=== PATIENT | male | born 1965 | race African-American/Black ===

== ENCOUNTER 2018-01-08 22:30 | Inpatient (IN) ==
[2018-01-08] MEDS ORDERED: LABETALOL 20 MG/4 ML SYRINGE IV STA (23:20)
[2018-01-08 23:41] LABS: Basophils # 0.1 10*3/uL (0.0-0.2); Basophils % 0.3 % (0.0-0.8); Eosinophils # 0.1 10*3/uL (0.0-0.87); Eosinophils % 0.4 % (0.00-10.9); Immature Granulocytes % 0.8 %; Immature Granulocytes Absolute 0.12 #; Lymphocytes # 3.7 10*3/uL (1.4-4.0); Lymphocytes % 24.7 % (21.2-54.2); Mean Corpuscular HGB Conc 34.9 GM/DL (32-36); Mean Corpuscular Hemoglobin 30 PG (27-34); Mean Corpuscular Volume 87.2 FL (87-102); Mean Platelet Volume 10.6 FL (9.6-12.0); Monocytes # 1.6 10*3/uL (0.11-0.8); Monocytes % 10.8 % (1.7-12.7); Neutrophils # 9.4 10*3/uL (1.4-7.4); Platelet Count 272 T/CUMM (130-400); Red Blood Count 4.93 MC/CUMM (3.8-5.5); Red Cell Distribution Width 12.5 % (9.3-17.3)
[2018-01-08 23:50] LABS: INR 1.1; Partial Thromboplastin Time 28.4 SECS (0-40)
[2018-01-09 00:03] LABS: Alanine Aminotransferase 24 U/L (16-61); Alkaline Phosphatase 85 U/L (45-117); Aspartate Amino Transferase 21 U/L (0-37); Blood Urea Nitrogen 8 MG/DL (7-18); Calcium 8.9 MG/DL (8.5-10.1); Glucose 109 MG/DL (74-106); Osmolality,Calculated 273.7 MOS/KG (273-304); Sodium 138 MMOL/L (136-145); Total Protein 7.4 G/DL (6.4-8.3)
[2018-01-09] MEDS ORDERED: LABETALOL 20 MG/4 ML SYRINGE IV ONE (00:05)
[2018-01-09 00:18] LABS: Troponin I Only 0.065 NG/ML (0.00-0.045)
[2018-01-09 00:34] LABS: Apearance,Urine CLEAR (Clear); Bilirubin,Urine Negative (Negative); Blood, Urine Small mg/dL (Negative); Glucose,Urine (UA) Negative (Negative); Ketones,Urine 5 mg/dL (Negative); Mucus,Urine Occasional /LPF (Occasional); Nitrite,Urine Negative (Negative); Protein,Urine Negative; RBC,Urine <1 /HPF (0-4); Urine Color Yellow (Yellow); Urine Specific Gravity 1.006 (1.001-1.035); Urine Urobilinogen < 2.0 EU/DL (0.2-1.0); WBC,Urine 2 /HPF (0-6)
[2018-01-09 00:38] LABS: Barbiturates Screen,Urine Negative (Negative); Benzodiazepines Screen,Urine Negative (Negative); Cannabinoid Screen,Urine Positive (Negative); Opiate Screen,Urine Negative (Negative); Phencyclidine Screen,Urine Negative (Negative)
[2018-01-09] MEDS ORDERED: ENOXAPARIN 100 MG/ML SYRINGE SUBCUT STA (01:24)
[2018-01-09] MEDS ORDERED: ENOXAPARIN 100 MG/ML SYRINGE SUBCUT ONE (01:41)
[2018-01-09] MEDS ORDERED: ACETAMINOPHEN 325 MG TABLET PO PRN (02:37)
[2018-01-09] MEDS ORDERED: ONDANSETRON 4 MG/2 ML VIAL IV PRN (02:37)
[2018-01-09] MEDS: hydrALAZINE 20 MG/1 ML VIAL IV PRN (04:00)
[2018-01-09 04:40] LABS: Basophils % 0.2 % (0.0-0.8); Eosinophils # 0.1 10*3/uL (0.0-0.87); Eosinophils % 0.5 % (0.00-10.9); Hematocrit 44.7 VOL% (42.0-52.0); Hemoglobin 15.3 GM/DL (14.0-18.0); Immature Granulocytes % 0.8 %; Lymphocytes # 3.4 10*3/uL (1.4-4.0); Mean Corpuscular HGB Conc 34.2 GM/DL (32-36); Mean Corpuscular Hemoglobin 30 PG (27-34); Mean Corpuscular Volume 87.3 FL (87-102); Mean Platelet Volume 10.5 FL (9.6-12.0); Monocytes # 1.5 10*3/uL (0.11-0.8); Monocytes % 11.4 % (1.7-12.7); Neutrophils # 7.9 10*3/uL (1.4-7.4); Neutrophils % 61.1 % (38.7-73.9); Platelet Count 261 T/CUMM (130-400); Red Blood Count 5.12 MC/CUMM (3.8-5.5); Red Cell Distribution Width 12.4 % (9.3-17.3); White Blood Count 12.9 T/CUMM (4-12)
[2018-01-09 05:17] LABS: Risk Ratio 2.75; Thyroid Stimulating Hormone 2.22 uIU/ml (0.358-3.74)
[2018-01-09] MEDS ORDERED: POTASSIUM CHLORIDE RIDER 10 MEQ in PREMIX 1 EACH IV PRN (05:36)
[2018-01-09] MEDS: POTASSIUM CHLORIDE RIDER 10 MEQ in PREMIX 1 EACH IV PRN ×3 (06:43→10:19)
[2018-01-09] MEDS ORDERED: PANTOPRAZOLE 40 MG TABLET PO SCH (09:00)
[2018-01-09] MEDS ORDERED: LORazepam 2 MG/1 ML VIAL IV ONE (09:30)
[2018-01-09] MEDS: LOSARTAN 25 MG TABLET PO SCH (12:05)
[2018-01-09] MEDS: amLODIPine 5 MG TABLET PO SCH (12:05)
[2018-01-09] MEDS: ASPIRIN EC 81 MG TABLET PO SCH (12:05)
[2018-01-09] MEDS ORDERED: GLYCOPYRROLATE 0.4 MG/2 ML VIAL IV ONE (12:10)
[2018-01-09 12:59] LABS: Allen Test Positive
[2018-01-09 13:00] LABS: ABG Base Excess 0.5 MMOL/L (-2.5-2.5); ABG HCO3 23.9 MMOL/L (20-26); ABG Oxygen Saturation 62.4 % (95-100); ABG PCO2 51.6 MM HG (35-48); ABG PH 7.337 (7.35-7.45); ABG TCO2 23.5 MMOL/L (23-27)
[2018-01-09] MEDS ORDERED: PROPOFOL 1,000 MG/100 ML BOTTLE IV ONE ×2 (13:05→18:06)
[2018-01-09 13:08] LABS: Basophils % 0.2 % (0.0-0.8); Eosinophils # 0.1 10*3/uL (0.0-0.87); Eosinophils % 0.4 % (0.00-10.9); Hematocrit 48.1 VOL% (42.0-52.0); Immature Granulocytes % 0.8 %; Lymphocytes # 2.7 10*3/uL (1.4-4.0); Lymphocytes % 22.2 % (21.2-54.2); Mean Corpuscular HGB Conc 33.3 GM/DL (32-36); Mean Corpuscular Hemoglobin 30 PG (27-34); Mean Corpuscular Volume 90.4 FL (87-102); Mean Platelet Volume 10.5 FL (9.6-12.0); Monocytes # 1.3 10*3/uL (0.11-0.8); Monocytes % 10.4 % (1.7-12.7); Neutrophils # 8.1 10*3/uL (1.4-7.4); Platelet Count 264 T/CUMM (130-400); Red Blood Count 5.32 MC/CUMM (3.8-5.5); Red Cell Distribution Width 12.6 % (9.3-17.3); White Blood Count 12.3 T/CUMM (4-12)
[2018-01-09] MEDS ORDERED: FUROSEMIDE 40 MG/4 ML VIAL ONE (13:09)
[2018-01-09] MEDS ORDERED: ETOMIDATE 20 MG/10 ML VIAL IV ONE (13:12)
[2018-01-09] MEDS ORDERED: ROCURONIUM 100 MG/10 ML VIAL IV ONE (13:12)
[2018-01-09] MEDS ORDERED: VECURONIUM 10 MG VIAL IV ONE (13:12)
[2018-01-09 13:16] LABS: ABG PO2 36.3 MM HG (80-95)
[2018-01-09] MEDS ORDERED: hydrALAZINE 20 MG/1 ML VIAL IV ONE (13:20)
[2018-01-09] MEDS ORDERED: FUROSEMIDE 40 MG/4 ML VIAL IV ONE ×2 (13:20→17:07)
[2018-01-09] MEDS: PROPOFOL 1,000 MG/100 ML BOTTLE IV SCH ×2 (13:20→19:15)
[2018-01-09] MEDS ORDERED: PROPOFOL 200 MG/20 ML VIAL IV PRN (13:30)
[2018-01-09 13:31] LABS: Apearance,Urine CLOUDY (Clear); Bacteria,Urine Few /HPF (Few); Bilirubin,Urine Negative (Negative); Blood, Urine Small mg/dL (Negative); Glucose,Urine (UA) 150 mg/dL (Negative); Granular Casts,Urine 8 /LPF (0-1); Ketones,Urine 20 mg/dL (Negative); Nitrite,Urine Negative (Negative); Protein,Urine >=500 MG/DL; RBC,Urine 8 /HPF (0-4); Squamous Epithelial Cell,Urine Occasional /HPF (0-10); Urine Color Yellow (Yellow); Urine Specific Gravity 1.025 (1.001-1.035); Urine Urobilinogen < 2.0 EU/DL (0.2-1.0); WBC,Urine 66 /HPF (0-6)
[2018-01-09 13:32] LABS: Alanine Aminotransferase 26 U/L (16-61); Albumin 3.1 G/DL (3.4-5.0); Alkaline Phosphatase 91 U/L (45-117); Aspartate Amino Transferase 18 U/L (0-37); Blood Urea Nitrogen 8 MG/DL (7-18); Calcium 8.7 MG/DL (8.5-10.1); Glucose 103 MG/DL (74-106); Osmolality,Calculated 278.3 MOS/KG (273-304); Potassium 3.3 MMOL/L (3.5-5.1); Sodium 141 MMOL/L (136-145)
[2018-01-09 13:33] LABS: Troponin I Only 0.063 NG/ML (0.00-0.045)
[2018-01-09 13:36] LABS: Eosinophils 2 % (0-10); Lymphocytes 24 % (20-55); Platelet Estimate Adequate; Total Cells Counted 100
[2018-01-09 13:37] LABS: Segmented Neutrophils 70 % (50-85)
[2018-01-09 14:18] LABS: ABG Base Excess -1.5 MMOL/L (-2.5-2.5); ABG HCO3 23.2 MMOL/L (20-26); ABG Oxygen Saturation 98.1 % (95-100); ABG TCO2 26.6 MMOL/L (23-27)
[2018-01-09 14:21] LABS: ABG PCO2 78.8 MM HG (35-48); ABG PH 7.199 (7.35-7.45)
[2018-01-09 14:24] LABS: Basophils # 0.1 10*3/uL (0.0-0.2); Basophils % 0.2 % (0.0-0.8); Eosinophils % 0.2 % (0.00-10.9); Hematocrit 50.8 VOL% (42.0-52.0); Hemoglobin 16.7 GM/DL (14.0-18.0); Immature Granulocytes % 0.9 %; Lymphocytes # 2.3 10*3/uL (1.4-4.0); Lymphocytes % 10.8 % (21.2-54.2); Mean Corpuscular HGB Conc 32.9 GM/DL (32-36); Mean Corpuscular Hemoglobin 30 PG (27-34); Mean Corpuscular Volume 91.2 FL (87-102); Mean Platelet Volume 10.2 FL (9.6-12.0); Monocytes # 1.4 10*3/uL (0.11-0.8); Monocytes % 6.7 % (1.7-12.7); Neutrophils # 17.5 10*3/uL (1.4-7.4); Neutrophils % 81.2 % (38.7-73.9); Platelet Count 267 T/CUMM (130-400); Red Blood Count 5.57 MC/CUMM (3.8-5.5); Red Cell Distribution Width 12.7 % (9.3-17.3); White Blood Count 21.6 T/CUMM (4-12)
[2018-01-09 14:48] LABS: Lymphocytes 9 % (20-55); Platelet Estimate Adequate; Segmented Neutrophils 83 % (50-85)
[2018-01-09 14:49] LABS: Total Cells Counted 100
[2018-01-09 14:57] LABS: Alanine Aminotransferase 32 U/L (16-61); Albumin 3.2 G/DL (3.4-5.0); Alkaline Phosphatase 103 U/L (45-117); Aspartate Amino Transferase 29 U/L (0-37); Blood Urea Nitrogen 9 MG/DL (7-18); Glucose 154 MG/DL (74-106); Osmolality,Calculated 280.4 MOS/KG (273-304); Potassium 3.6 MMOL/L (3.5-5.1); Sodium 140 MMOL/L (136-145); Total Protein 8.7 G/DL (6.4-8.3)
[2018-01-09 14:59] LABS: Troponin I Only 0.141 NG/ML (0.00-0.045)
[2018-01-09] MEDS ORDERED: FUROSEMIDE 40 MG/4 ML VIAL IV SCH (16:00)
[2018-01-09 16:04] LABS: ABG Base Excess 1.2 MMOL/L (-2.5-2.5); ABG HCO3 27.2 MMOL/L (20-26); ABG Oxygen Saturation 87.2 % (95-100); ABG PCO2 47.7 MM HG (35-48); ABG PH 7.374 (7.35-7.45); ABG TCO2 28.7 MMOL/L (23-27)
[2018-01-09] MEDS ORDERED: METOPROLOL TARTRATE 5 MG/5 ML VIAL IV ONE (16:55)
[2018-01-09 17:01] LABS: Free T4 (Free Thyroxine) 1.48 NG/DL (0.76-1.46)
[2018-01-09] MEDS: SCOPOLAMINE 1.5 MG PATCH TRANSDERM SCH (17:26)
[2018-01-09] MEDS: methylPREDNISolone SOD SUC 40 MG/1 ML VIAL IV SCH (17:27)
[2018-01-09] MEDS: METOPROLOL TARTRATE 5 MG/5 ML VIAL IV SCH ×2 (17:27→21:53)
[2018-01-09] MEDS: PIPERACILLIN/TAZOBACTAM 3,375 MG in SODIUM CHLORIDE 0.9% 100 ML IV SCH (17:27)
[2018-01-09] MEDS: ENOXAPARIN 40 MG/0.4 ML SYRINGE SUBCUT SCH (17:38)
[2018-01-09 17:44] LABS: Lactic Acid 3.4 MMOL/L (0.4-2.0)
[2018-01-09] MEDS: INSULIN REGULAR 100 UNIT/ML SUBCUT SCH (19:14)
[2018-01-09] MEDS: LABETALOL INJ 200 MG in SODIUM CHLORIDE 0.9% 160 ML IV SCH (19:14)
[2018-01-09] MEDS: ALBUTEROL/IPRATROPIUM 3 ML NEB RESP TX SCH (19:33)
[2018-01-09] MEDS: ATORVASTATIN 80 MG TABLET PO SCH (20:07)
[2018-01-10] MEDS: INSULIN REGULAR 100 UNIT/ML SUBCUT SCH ×4 (00:06→18:20)
[2018-01-10] MEDS: methylPREDNISolone SOD SUC 40 MG/1 ML VIAL IV SCH ×5 (00:07→22:31)
[2018-01-10] MEDS: PIPERACILLIN/TAZOBACTAM 3,375 MG in SODIUM CHLORIDE 0.9% 100 ML IV SCH ×3 (00:07→16:15)
[2018-01-10] MEDS: ALBUTEROL/IPRATROPIUM 3 ML NEB RESP TX SCH ×4 (00:14→19:38)
[2018-01-10] MEDS: PROPOFOL 1,000 MG/100 ML BOTTLE IV SCH ×3 (01:18→18:20)
[2018-01-10 03:44] LABS: ABG Base Excess -1.5 MMOL/L (-2.5-2.5); ABG HCO3 23.2 MMOL/L (20-26); ABG Oxygen Saturation 99.2 % (95-100); ABG PCO2 39.7 MM HG (35-48); ABG PH 7.379 (7.35-7.45); ABG TCO2 19.6 MMOL/L (23-27); Allen Test Positive; Pt O2 Delivery Device Ventilator
[2018-01-10 04:45] LABS: Basophils # 0.2 10*3/uL (0.0-0.2); Basophils % 0.3 % (0.0-0.8); Hematocrit 47.1 VOL% (42.0-52.0); Hemoglobin 15.5 GM/DL (14.0-18.0); Immature Granulocytes % 2.8 %; Immature Granulocytes Absolute 1.49 #; Lymphocytes # 2.8 10*3/uL (1.4-4.0); Lymphocytes % 5.3 % (21.2-54.2); Mean Corpuscular HGB Conc 32.9 GM/DL (32-36); Mean Corpuscular Hemoglobin 30 PG (27-34); Mean Corpuscular Volume 90.2 FL (87-102); Mean Platelet Volume 10.3 FL (9.6-12.0); Monocytes # 1.1 10*3/uL (0.11-0.8); Neutrophils # 47.9 10*3/uL (1.4-7.4); Neutrophils % 89.6 % (38.7-73.9); Platelet Count 268 T/CUMM (130-400); Red Blood Count 5.22 MC/CUMM (3.8-5.5); Red Cell Distribution Width 12.7 % (9.3-17.3)
[2018-01-10 04:47] LABS: White Blood Count 53.5 T/CUMM (4-12)
[2018-01-10 05:10] LABS: Band Neutrophils 2 % (0-10); Lymphocytes 7 % (20-55); Platelet Estimate Normal; Segmented Neutrophils 88 % (50-85); Total Cells Counted 100
[2018-01-10 05:13] LABS: Calcium 8.8 MG/DL (8.5-10.1); Osmolality,Calculated 286.5 MOS/KG (273-304); Potassium 3.4 MMOL/L (3.5-5.1)
[2018-01-10 05:16] LABS: Albumin 2.9 G/DL (3.4-5.0); Bilirubin,Total 1.1 MG/DL (0.2-1.0); Calcium 8.9 MG/DL (8.5-10.1); Osmolality,Calculated 286.5 MOS/KG (273-304); Potassium 3.5 MMOL/L (3.5-5.1); Total Protein 7.7 G/DL (6.4-8.3)
[2018-01-10] MEDS: METOPROLOL TARTRATE 5 MG/5 ML VIAL IV SCH ×5 (05:34→21:32)
[2018-01-10] MEDS ORDERED: ALBUMIN 25% 50 GM in PREMIX 1 EACH IV ONE ×2 (05:37→10:00)
[2018-01-10] MEDS ORDERED: LEVOFLOXACIN INJ 750 MG in PREMIX 1 EACH IV SCH (06:00)
[2018-01-10] MEDS: POTASSIUM CHLORIDE RIDER 10 MEQ in PREMIX 1 EACH IV PRN ×3 (06:38→08:27)
[2018-01-10 06:45] LABS: Lactic Acid 2.8 MMOL/L (0.4-2.0)
[2018-01-10] MEDS ORDERED: FUROSEMIDE 40 MG/4 ML VIAL IV SCH ×2 (08:00→09:00)
[2018-01-10] MEDS ORDERED: SODIUM CHLORIDE 0.9% 500 ML IV ONE (08:11)
[2018-01-10] MEDS: ASPIRIN EC 81 MG TABLET PO SCH (08:17)
[2018-01-10] MEDS: amLODIPine 5 MG TABLET PO SCH (08:17)
[2018-01-10] MEDS: LOSARTAN 25 MG TABLET PO SCH (08:17)
[2018-01-10] MEDS: SODIUM CHLORIDE 0.9% 1,000 ML IV SCH ×2 (08:18→21:32)
[2018-01-10] MEDS: PANTOPRAZOLE 40 MG VIAL IV SCH (08:19)
[2018-01-10] MEDS: ENOXAPARIN 40 MG/0.4 ML SYRINGE SUBCUT SCH (08:19)
[2018-01-10] MEDS: VANCOMYCIN INJ 1,500 MG in SODIUM CHLORIDE 0.9% 500 ML IV SCH (09:52)
[2018-01-10 10:41] LABS: Basophils # 0.1 10*3/uL (0.0-0.2); Basophils % 0.1 % (0.0-0.8); Hematocrit 44.9 VOL% (42.0-52.0); Immature Granulocytes % 1.6 %; Immature Granulocytes Absolute 0.74 #; Lymphocytes # 2.2 10*3/uL (1.4-4.0); Mean Corpuscular HGB Conc 33.4 GM/DL (32-36); Mean Corpuscular Hemoglobin 30 PG (27-34); Mean Platelet Volume 10.9 FL (9.6-12.0); Monocytes % 2.3 % (1.7-12.7); Platelet Count 288 T/CUMM (130-400); Red Blood Count 4.99 MC/CUMM (3.8-5.5)
[2018-01-10 10:56] LABS: Calcium 8.5 MG/DL (8.5-10.1); Osmolality,Calculated 287.4 MOS/KG (273-304); Potassium 3.9 MMOL/L (3.5-5.1)
[2018-01-10 11:08] LABS: Band Neutrophils 23 % (0-10); Lymphocytes 3 % (20-55); Segmented Neutrophils 73 % (50-85); Total Cells Counted 100
[2018-01-10 11:09] LABS: Macrocytosis Slight; Platelet Estimate Normal
[2018-01-10] MEDS: LABETALOL INJ 200 MG in SODIUM CHLORIDE 0.9% 160 ML IV SCH (16:13)
[2018-01-10 16:49] LABS: ABG Base Excess 1.9 MMOL/L (-2.5-2.5); ABG HCO3 26.1 MMOL/L (20-26); ABG Oxygen Saturation 95.8 % (95-100); ABG PCO2 39.4 MM HG (35-48); ABG PH 7.431 (7.35-7.45); ABG PO2 81.9 MM HG (80-95); ABG TCO2 22.5 MMOL/L (23-27); Allen Test Positive; Pt O2 Delivery Device Ventilator
[2018-01-10] MEDS: ATORVASTATIN 80 MG TABLET PO SCH (21:31)
[2018-01-11] MEDS: PROPOFOL 1,000 MG/100 ML BOTTLE IV SCH ×3 (00:51→18:32)
[2018-01-11] MEDS: PIPERACILLIN/TAZOBACTAM 3,375 MG in SODIUM CHLORIDE 0.9% 100 ML IV SCH ×3 (01:09→17:23)
[2018-01-11] MEDS: INSULIN REGULAR 100 UNIT/ML SUBCUT SCH ×4 (01:09→18:23)
[2018-01-11] MEDS: METOPROLOL TARTRATE 5 MG/5 ML VIAL IV SCH ×5 (01:10→17:29)
[2018-01-11] MEDS: hydrALAZINE 20 MG/1 ML VIAL IV PRN (01:10)
[2018-01-11] MEDS: ALBUTEROL/IPRATROPIUM 3 ML NEB RESP TX SCH ×4 (01:45→20:16)
[2018-01-11 05:10] LABS: ABG Base Excess 3.8 MMOL/L (-2.5-2.5); ABG HCO3 27.6 MMOL/L (20-26); ABG Oxygen Saturation 90.5 % (95-100); ABG PCO2 36.6 MM HG (35-48); ABG PH 7.478 (7.35-7.45); ABG TCO2 23.3 MMOL/L (23-27); Allen Test Positive; Pt O2 Delivery Device Ventilator
[2018-01-11 06:09] LABS: Basophils % 0.1 % (0.0-0.8); Hematocrit 40.7 VOL% (42.0-52.0); Hemoglobin 13.9 GM/DL (14.0-18.0); Immature Granulocytes % 1.6 %; Immature Granulocytes Absolute 0.49 #; Lymphocytes # 1.2 10*3/uL (1.4-4.0); Lymphocytes % 3.9 % (21.2-54.2); Mean Corpuscular HGB Conc 34.2 GM/DL (32-36); Mean Corpuscular Hemoglobin 30 PG (27-34); Mean Corpuscular Volume 87.9 FL (87-102); Mean Platelet Volume 10.9 FL (9.6-12.0); Monocytes # 1.1 10*3/uL (0.11-0.8); Monocytes % 3.7 % (1.7-12.7); Neutrophils # 27.3 10*3/uL (1.4-7.4); Neutrophils % 90.7 % (38.7-73.9); Platelet Count 263 T/CUMM (130-400); Red Blood Count 4.63 MC/CUMM (3.8-5.5); Red Cell Distribution Width 13.2 % (9.3-17.3); White Blood Count 30.1 T/CUMM (4-12)
[2018-01-11 06:27] LABS: Calcium 8.8 MG/DL (8.5-10.1); Osmolality,Calculated 292.8 MOS/KG (273-304); Potassium 3.5 MMOL/L (3.5-5.1)
[2018-01-11 06:31] LABS: Hypochromasia 1+; Lymphocytes 1 % (20-55); Ovalocytes Slight; Platelet Estimate Adequate; Segmented Neutrophils 98 % (50-85); Total Cells Counted 100
[2018-01-11] MEDS: methylPREDNISolone SOD SUC 40 MG/1 ML VIAL IV SCH ×3 (06:47→17:26)
[2018-01-11] MEDS: PANTOPRAZOLE 40 MG VIAL IV SCH (08:21)
[2018-01-11] MEDS: ASPIRIN EC 81 MG TABLET PO SCH (08:21)
[2018-01-11] MEDS: VANCOMYCIN INJ 1,500 MG in SODIUM CHLORIDE 0.9% 500 ML IV SCH (08:22)
[2018-01-11] MEDS: LOSARTAN 25 MG TABLET PO SCH (08:26)
[2018-01-11] MEDS: ENOXAPARIN 40 MG/0.4 ML SYRINGE SUBCUT SCH (10:35)
[2018-01-11] MEDS: POTASSIUM CHLORIDE RIDER 10 MEQ in PREMIX 1 EACH IV PRN ×3 (10:36→13:15)
[2018-01-11] MEDS ORDERED: DEXTROSE 50% 25 GM/50 ML VIAL IV PRN (11:03)
[2018-01-11] MEDS ORDERED: GLUCAGON 1 MG VIAL IM PRN (11:03)
[2018-01-11] MEDS: amLODIPine 5 MG TABLET PO SCH (11:05)
[2018-01-11] MEDS: LABETALOL INJ 200 MG in SODIUM CHLORIDE 0.9% 160 ML IV SCH (17:03)
[2018-01-11 18:08] LABS: Glucose,CSF 86 MG/DL (40-70)
[2018-01-11 18:15] LABS: Appearance,CSF Clear; Lymphocytes,CSF 100 %; Red Blood Cell,CSF 41 C/CUMM; White Blood Cell,CSF < 1 C/CUMM
[2018-01-11] MEDS: SODIUM CHLORIDE 0.9% 1,000 ML IV SCH (18:30)
[2018-01-11] MEDS: ATORVASTATIN 80 MG TABLET PO SCH (20:41)
[2018-01-11] MEDS: cefTRIAXone 1,000 MG in SYRINGE 1 EACH IV SCH (20:42)
[2018-01-12] MEDS: methylPREDNISolone SOD SUC 40 MG/1 ML VIAL IV SCH ×3 (00:18→18:10)
[2018-01-12] MEDS: METOPROLOL TARTRATE 5 MG/5 ML VIAL IV SCH ×4 (00:18→09:30)
[2018-01-12] MEDS: INSULIN REGULAR 100 UNIT/ML SUBCUT SCH ×4 (00:19→18:03)
[2018-01-12] MEDS: ALBUTEROL/IPRATROPIUM 3 ML NEB RESP TX SCH ×4 (00:23→19:13)
[2018-01-12] MEDS: hydrALAZINE 20 MG/1 ML VIAL IV PRN ×2 (03:15→13:30)
[2018-01-12 04:39] LABS: Allen Test Positive; Pt O2 Delivery Device Ventilator
[2018-01-12 04:40] LABS: ABG Base Excess 2.9 MMOL/L (-2.5-2.5); ABG HCO3 26.5 MMOL/L (20-26); ABG Oxygen Saturation 98.4 % (95-100); ABG PCO2 37.2 MM HG (35-48); ABG PO2 127.9 MM HG (80-95); ABG TCO2 27.6 MMOL/L (23-27)
[2018-01-12 05:19] LABS: Basophils % 0.1 % (0.0-0.8); Hematocrit 40.8 VOL% (42.0-52.0); Hemoglobin 13.3 GM/DL (14.0-18.0); Immature Granulocytes % 0.9 %; Immature Granulocytes Absolute 0.23 #; Lymphocytes # 1.1 10*3/uL (1.4-4.0); Lymphocytes % 4.3 % (21.2-54.2); Mean Corpuscular HGB Conc 32.6 GM/DL (32-36); Mean Corpuscular Hemoglobin 30 PG (27-34); Mean Corpuscular Volume 91.9 FL (87-102); Mean Platelet Volume 11.1 FL (9.6-12.0); Monocytes # 0.9 10*3/uL (0.11-0.8); Monocytes % 3.7 % (1.7-12.7); Neutrophils # 22.6 10*3/uL (1.4-7.4); Platelet Count 265 T/CUMM (130-400); Red Blood Count 4.44 MC/CUMM (3.8-5.5); Red Cell Distribution Width 13.3 % (9.3-17.3); White Blood Count 24.8 T/CUMM (4-12)
[2018-01-12 05:38] LABS: Hypochromasia 1+; Lymphocytes 3 % (20-55); Platelet Estimate Adequate; Segmented Neutrophils 95 % (50-85); Total Cells Counted 100
[2018-01-12] MEDS ORDERED: LEVOFLOXACIN INJ 750 MG in PREMIX 1 EACH IV SCH (06:00)
[2018-01-12 06:04] LABS: Calcium 8.9 MG/DL (8.5-10.1); Osmolality,Calculated 303.3 MOS/KG (273-304)
[2018-01-12] MEDS: SODIUM CHLORIDE 0.9% 1,000 ML IV SCH (06:26)
[2018-01-12 06:35] LABS: Prealbumin 14.1 MG/DL (20-40)
[2018-01-12 07:29] LABS: HIV Antigen/Antibody Result Nonreactive (Nonreactive)
[2018-01-12] MEDS: PANTOPRAZOLE 40 MG VIAL IV SCH (09:00)
[2018-01-12] MEDS: ASPIRIN EC 81 MG TABLET PO SCH (09:00)
[2018-01-12] MEDS: SCOPOLAMINE 1.5 MG PATCH TRANSDERM SCH (09:00)
[2018-01-12] MEDS ORDERED: LABETALOL INJ 200 MG in SODIUM CHLORIDE 0.9% 160 ML IV PRN (09:00)
[2018-01-12] MEDS: LOSARTAN 25 MG TABLET PO SCH (09:00)
[2018-01-12] MEDS: amLODIPine 5 MG TABLET PO SCH (09:00)
[2018-01-12] MEDS: ENOXAPARIN 40 MG/0.4 ML SYRINGE SUBCUT SCH (09:00)
[2018-01-12] MEDS ORDERED: METOPROLOL TARTRATE 5 MG/5 ML VIAL IV PRN (10:00)
[2018-01-12] MEDS ORDERED: MIDAZOLAM 2 MG/2 ML VIAL ONE (12:00)
[2018-01-12] MEDS ORDERED: MIDAZOLAM 2 MG/2 ML VIAL IV ONE (13:00)
[2018-01-12] MEDS ORDERED: METOPROLOL TARTRATE 5 MG/5 ML VIAL IV ONE ×2 (13:35→13:37)
[2018-01-12] MEDS ORDERED: DILTIAZEM 50 MG/10 ML VIAL IV ONE ×3 (13:35→13:54)
[2018-01-12] MEDS ORDERED: SODIUM CHLORIDE 0.9% 500 ML IV ONE (13:54)
[2018-01-12 15:22] LABS: ABG Base Excess 0.2 MMOL/L (-2.5-2.5); ABG HCO3 24.6 MMOL/L (20-26); ABG Oxygen Saturation 96.1 % (95-100); ABG PCO2 40.2 MM HG (35-48); ABG PH 7.401 (7.35-7.45); ABG PO2 86.5 MM HG (80-95); ABG TCO2 21.7 MMOL/L (23-27); Pt O2 Delivery Device Ventilator
[2018-01-12] MEDS ORDERED: LACTATED RINGERS 1,000 ML IV SCH (16:00)
[2018-01-12] MEDS: DILTIAZEM 60 MG TABLET PO SCH ×2 (17:05→21:31)
[2018-01-12] MEDS: PROPOFOL 1,000 MG/100 ML BOTTLE IV SCH (20:54)
[2018-01-12] MEDS: cefTRIAXone 1,000 MG in SYRINGE 1 EACH IV SCH (21:25)
[2018-01-12] MEDS: ATORVASTATIN 80 MG TABLET PO SCH (21:31)
[2018-01-12 21:37] LABS: Potassium 4.1 MMOL/L (3.5-5.1)
[2018-01-13] MEDS: INSULIN REGULAR 100 UNIT/ML SUBCUT SCH ×4 (01:13→17:42)
[2018-01-13] MEDS: ALBUTEROL/IPRATROPIUM 3 ML NEB RESP TX SCH ×4 (01:20→18:50)
[2018-01-13 04:13] LABS: Allen Test Positive; Pt O2 Delivery Device Ventilator
[2018-01-13 04:16] LABS: ABG Base Excess 2.6 MMOL/L (-2.5-2.5); ABG HCO3 26.6 MMOL/L (20-26); ABG Oxygen Saturation 96.4 % (95-100); ABG PH 7.451 (7.35-7.45); ABG PO2 86.6 MM HG (80-95); ABG TCO2 22.7 MMOL/L (23-27)
[2018-01-13 04:58] LABS: Basophils % 0.1 % (0.0-0.8); Hematocrit 43.6 VOL% (42.0-52.0); Hemoglobin 13.9 GM/DL (14.0-18.0); Immature Granulocytes % 0.7 %; Immature Granulocytes Absolute 0.12 #; Lymphocytes # 1.2 10*3/uL (1.4-4.0); Lymphocytes % 6.8 % (21.2-54.2); Mean Corpuscular HGB Conc 31.9 GM/DL (32-36); Mean Corpuscular Hemoglobin 30 PG (27-34); Mean Corpuscular Volume 93.8 FL (87-102); Mean Platelet Volume 11.1 FL (9.6-12.0); Monocytes % 5.9 % (1.7-12.7); Neutrophils # 14.7 10*3/uL (1.4-7.4); Neutrophils % 86.5 % (38.7-73.9); Platelet Count 231 T/CUMM (130-400); Red Blood Count 4.65 MC/CUMM (3.8-5.5); Red Cell Distribution Width 13.6 % (9.3-17.3)
[2018-01-13 05:34] LABS: Potassium 4.9 MMOL/L (3.5-5.1)
[2018-01-13] MEDS: LEVOFLOXACIN INJ 750 MG in PREMIX 1 EACH IV SCH (06:00)
[2018-01-13] MEDS: methylPREDNISolone SOD SUC 40 MG/1 ML VIAL IV SCH ×2 (06:46→18:05)
[2018-01-13] MEDS: hydrALAZINE 20 MG/1 ML VIAL IV PRN ×2 (08:18→20:50)
[2018-01-13] MEDS: PANTOPRAZOLE 40 MG VIAL IV SCH (09:05)
[2018-01-13] MEDS: LOSARTAN 25 MG TABLET PO SCH (09:05)
[2018-01-13] MEDS: DILTIAZEM 60 MG TABLET PO SCH (09:05)
[2018-01-13] MEDS: ASPIRIN EC 81 MG TABLET PO SCH (09:05)
[2018-01-13] MEDS: ENOXAPARIN 40 MG/0.4 ML SYRINGE SUBCUT SCH (09:10)
[2018-01-13] MEDS: DILTIAZEM INJ 100 MG in SODIUM CHLORIDE 0.9% 100 ML IV SCH ×3 (09:40→22:31)
[2018-01-13] MEDS: DEXTROSE 5% NACL 0.45% 1,000 ML IV SCH (10:30)
[2018-01-13] MEDS ORDERED: hydrALAZINE 20 MG/1 ML VIAL IV ONE (11:00)
[2018-01-13] MEDS ORDERED: METOPROLOL TARTRATE 5 MG/5 ML VIAL IV ONE (11:47)
[2018-01-13] MEDS: IMMUNE GLOBULIN 10% 40 GM in PREMIX 1 EACH IV SCH (12:40)
[2018-01-13] MEDS ORDERED: METOPROLOL TARTRATE 5 MG/5 ML VIAL IV PRN (15:05)
[2018-01-13] MEDS: PROPOFOL 1,000 MG/100 ML BOTTLE IV SCH (19:00)
[2018-01-13] MEDS: cefTRIAXone 1,000 MG in SYRINGE 1 EACH IV SCH (20:40)
[2018-01-13] MEDS ORDERED: CLORAZEPATE 7.5 MG TABLET PO PRN (22:10)
[2018-01-14] MEDS: ALBUTEROL/IPRATROPIUM 3 ML NEB RESP TX SCH ×4 (00:10→19:33)
[2018-01-14] MEDS: INSULIN REGULAR 100 UNIT/ML SUBCUT SCH ×4 (01:07→18:51)
[2018-01-14 03:42] LABS: Allen Test Positive; Pt O2 Delivery Device Ventilator
[2018-01-14 03:43] LABS: ABG Base Excess 4.8 MMOL/L (-2.5-2.5); ABG HCO3 28.8 MMOL/L (20-26); ABG Oxygen Saturation 98.3 % (95-100); ABG PCO2 52.2 MM HG (35-48); ABG PH 7.387 (7.35-7.45); ABG TCO2 26.9 MMOL/L (23-27)
[2018-01-14] MEDS: CLORAZEPATE 7.5 MG TABLET PO PRN ×3 (04:50→22:30)
[2018-01-14 05:01] LABS: Basophils % 0.1 % (0.0-0.8); Hematocrit 44.9 VOL% (42.0-52.0); Hemoglobin 14.7 GM/DL (14.0-18.0); Immature Granulocytes % 0.8 %; Immature Granulocytes Absolute 0.11 #; Lymphocytes # 1.1 10*3/uL (1.4-4.0); Lymphocytes % 7.3 % (21.2-54.2); Mean Corpuscular HGB Conc 32.7 GM/DL (32-36); Mean Corpuscular Hemoglobin 30 PG (27-34); Mean Corpuscular Volume 92.4 FL (87-102); Mean Platelet Volume 10.8 FL (9.6-12.0); Monocytes % 6.6 % (1.7-12.7); Neutrophils # 12.5 10*3/uL (1.4-7.4); Neutrophils % 85.2 % (38.7-73.9); Platelet Count 273 T/CUMM (130-400); Red Blood Count 4.86 MC/CUMM (3.8-5.5); Red Cell Distribution Width 13.7 % (9.3-17.3); White Blood Count 14.6 T/CUMM (4-12)
[2018-01-14 05:28] LABS: Calcium 9.2 MG/DL (8.5-10.1); Osmolality,Calculated 299.6 MOS/KG (273-304); Potassium 4.8 MMOL/L (3.5-5.1)
[2018-01-14] MEDS: DILTIAZEM INJ 100 MG in SODIUM CHLORIDE 0.9% 100 ML IV SCH ×3 (05:31→19:01)
[2018-01-14] MEDS: LEVOFLOXACIN INJ 750 MG in PREMIX 1 EACH IV SCH (06:10)
[2018-01-14] MEDS: methylPREDNISolone SOD SUC 40 MG/1 ML VIAL IV SCH ×2 (07:00→17:39)
[2018-01-14] MEDS: DEXTROSE 5% NACL 0.45% 1,000 ML IV SCH (07:02)
[2018-01-14 10:25] LABS: CKMB % 2.1 %; Troponin I Only 0.167 NG/ML (0.00-0.045)
[2018-01-14] MEDS: METOPROLOL TARTRATE 5 MG/5 ML VIAL IV SCH ×2 (11:09→17:39)
[2018-01-14] MEDS: hydrALAZINE 20 MG/1 ML VIAL IV PRN ×3 (11:10→21:14)
[2018-01-14] MEDS: LOSARTAN 25 MG TABLET PO SCH (11:11)
[2018-01-14] MEDS: ASPIRIN EC 81 MG TABLET PO SCH (11:11)
[2018-01-14] MEDS: PANTOPRAZOLE 40 MG VIAL IV SCH (11:11)
[2018-01-14] MEDS: ENOXAPARIN 40 MG/0.4 ML SYRINGE SUBCUT SCH (11:11)
[2018-01-14] MEDS: IMMUNE GLOBULIN 10% 40 GM in PREMIX 1 EACH IV SCH (14:00)
[2018-01-14] MEDS ORDERED: [UNRECOGNIZED DRUG - OTHER] IV ONE (15:00)
[2018-01-14] MEDS ORDERED: NS IV ONE (15:00)
[2018-01-14] MEDS: PROPOFOL 1,000 MG/100 ML BOTTLE IV SCH (18:51)
[2018-01-14] MEDS ORDERED: LOSARTAN 25 MG TABLET PO ONE (18:59)
[2018-01-14] MEDS ORDERED: LOSARTAN 25 MG TABLET PO SCH (19:01)
[2018-01-14] MEDS: cefTRIAXone 1,000 MG in SYRINGE 1 EACH IV SCH (21:15)
[2018-01-14] MEDS ORDERED: MORPHINE 4 MG/1 ML VIAL IV PRN (23:16)
[2018-01-15 01:05] VITALS: BP 149/101
[2018-01-15] MEDS: METOPROLOL TARTRATE 5 MG/5 ML VIAL IV SCH (01:06)
[2018-01-15] MEDS: INSULIN REGULAR 100 UNIT/ML SUBCUT SCH (01:06)
[2018-01-15 18:21] LABS: West Nile Virus Ab, IgG, CSF Negative (Negative); West Nile Virus Ab, IgM, CSF Negative (Negative)
[2018-01-15 18:46] LABS: Enterovirus PCR Source CSF
[2018-01-17 15:21] LABS: Ehrlichia Chaffeensis (HME)IgG <1:64 titer (<1:64)
[2018-01-18 09:11] LABS: ACh Receptor (Muscle) Binding 0 nmol/L (<=0.02)
== END 2018-01-15 00:50 | disposition hospice, home (50) | DRG 94 ==
LOC: N.EDINP 22:30 → N.ED 22:30 → SUATTDRO 01-09 02:37 → N.TELEN 01-09 03:31 → SUATTDRO 01-09 12:08 → N.ICU 01-09 13:02
PROVIDERS: ADMIT Internal Medicine; ATTEND Internal Medicine

== ENCOUNTER 2018-04-26 14:06 | Inpatient (IN) ==
[2018-04-27 00:32] LABS: Basophils % 0.1 % (0.0-0.8); Eosinophils # 0.4 10*3/uL (0.0-0.87); Eosinophils % 5.2 % (0.00-10.9); Hematocrit 31.5 VOL% (42.0-52.0); Hemoglobin 10.1 GM/DL (14.0-18.0); Immature Granulocytes % 0.1 %; Immature Granulocytes Absolute 0.01 #; Lymphocytes # 3.1 10*3/uL (1.4-4.0); Lymphocytes % 38.7 % (21.2-54.2); Mean Corpuscular HGB Conc 32.1 GM/DL (32-36); Mean Corpuscular Hemoglobin 29 PG (27-34); Mean Corpuscular Volume 91.3 FL (87-102); Mean Platelet Volume 9.8 FL (9.6-12.0); Monocytes # 0.6 10*3/uL (0.11-0.8); Monocytes % 7.7 % (1.7-12.7); Neutrophils # 3.9 10*3/uL (1.4-7.4); Neutrophils % 48.2 % (38.7-73.9); Platelet Count 263 T/CUMM (130-400); Red Blood Count 3.45 MC/CUMM (3.8-5.5); Red Cell Distribution Width 14.8 % (9.3-17.3)
[2018-04-27 01:07] LABS: Albumin 2.6 G/DL (3.4-5.0); Bilirubin,Total 0.4 MG/DL (0.2-1.0); Calcium 9.9 MG/DL (8.5-10.1); Osmolality,Calculated 274.7 MOS/KG (273-304); Potassium 3.4 MMOL/L (3.5-5.1); Total Protein 7.6 G/DL (6.4-8.3)
[2018-04-27] MEDS: oxyCODONE/ACETAMINOPHEN 5-325 MG TABLET PO PRN ×3 (02:32→21:04)
[2018-04-27] MEDS ORDERED: ALUMINUM/MAGNES/SIMETH MAX STR 30 ML UDCUP PO PRN (03:12)
[2018-04-27] MEDS ORDERED: oxyCODONE/ACETAMINOPHEN 5-325 MG TABLET PO PRN (03:12)
[2018-04-27] MEDS: ALBUTEROL/IPRATROPIUM 3 ML NEB RESP TX SCH ×6 (03:15→23:44)
[2018-04-27] MEDS ORDERED: MAGNESIUM SULF RIDER 2 GM in PREMIX 1 EACH IV ONE (03:30)
[2018-04-27] MEDS ORDERED: ALBUTEROL/IPRATROPIUM 3 ML NEB RESP TX SCH (07:00)
[2018-04-27] MEDS ORDERED: fentaNYL 12 MCG/HR PATCH TRANSDERM SCH (09:00)
[2018-04-27] MEDS: ESCITALOPRAM 10 MG TABLET PO SCH (09:18)
[2018-04-27] MEDS: PREGABALIN 25 MG CAPSULE PO SCH ×3 (09:18→21:04)
[2018-04-27] MEDS: SKIN HEALING OINT (AQUAPHOR) 50 GM TUBE TOP SCH ×2 (09:18→21:00)
[2018-04-27] MEDS: METOPROLOL TARTRATE 25 MG TABLET PO SCH ×2 (09:18→21:05)
[2018-04-27] MEDS: clonazePAM 0.5 MG TABLET PO SCH ×2 (09:18→21:04)
[2018-04-27] MEDS: LIDOCAINE 5% PATCH TRANSDERM SCH ×2 (09:19→21:00)
[2018-04-27] MEDS: APIXABAN 5 MG TABLET PO SCH ×2 (09:19→21:04)
[2018-04-27] MEDS: DOCUSATE SODIUM 100 MG/10 ML UDCUP PO SCH (09:19)
[2018-04-27] MEDS: FERROUS GLUCONATE 324 MG TABLET PO SCH ×3 (09:19→21:04)
[2018-04-27] MEDS: fentaNYL 12 MCG/HR PATCH TRANSDERM SCH (11:01)
[2018-04-27] MEDS: ZINC OXIDE PASTE 113 GM TUBE TOP SCH ×2 (13:06→21:00)
[2018-04-27] MEDS: LEVOFLOXACIN 750 MG TABLET PO SCH (15:57)
[2018-04-27 23:40] LABS: Apearance,Urine CLOUDY (Clear); Bacteria,Urine Occasional /HPF (Few); Bilirubin,Urine Negative (Negative); Blood, Urine Negative (Negative); Glucose,Urine (UA) Negative (Negative); Ketones,Urine Negative (Negative); Mucus,Urine Moderate /LPF (Occasional); Nitrite,Urine Negative (Negative); Protein,Urine Negative; RBC,Urine 4 /HPF (0-4); Squamous Epithelial Cell,Urine Occasional /HPF (0-10); Urine Color Yellow (Yellow); Urine Specific Gravity 1.016 (1.001-1.035); Urine Urobilinogen < 2.0 EU/DL (0.2-1.0); WBC,Urine 19 /HPF (0-6)
[2018-04-28] MEDS: ALBUTEROL/IPRATROPIUM 3 ML NEB RESP TX SCH ×6 (03:28→23:39)
[2018-04-28] MEDS: oxyCODONE/ACETAMINOPHEN 5-325 MG TABLET PO PRN ×2 (05:34→17:02)
[2018-04-28 07:07] LABS: Basophils % 0.4 % (0.0-0.8); Eosinophils # 0.4 10*3/uL (0.0-0.87); Eosinophils % 5.6 % (0.00-10.9); Hematocrit 32.6 VOL% (42.0-52.0); Hemoglobin 10.2 GM/DL (14.0-18.0); Immature Granulocytes % 0.4 %; Immature Granulocytes Absolute 0.03 #; Lymphocytes % 40.9 % (21.2-54.2); Mean Corpuscular HGB Conc 31.3 GM/DL (32-36); Mean Corpuscular Hemoglobin 29 PG (27-34); Mean Corpuscular Volume 91.6 FL (87-102); Mean Platelet Volume 10.4 FL (9.6-12.0); Monocytes # 0.8 10*3/uL (0.11-0.8); Monocytes % 10.3 % (1.7-12.7); Neutrophils # 3.1 10*3/uL (1.4-7.4); Neutrophils % 42.4 % (38.7-73.9); Platelet Count 256 T/CUMM (130-400); Red Blood Count 3.56 MC/CUMM (3.8-5.5); Red Cell Distribution Width 14.9 % (9.3-17.3); White Blood Count 7.3 T/CUMM (4-12)
[2018-04-28 07:37] LABS: Osmolality,Calculated 276.5 MOS/KG (273-304); Potassium 3.3 MMOL/L (3.5-5.1); Prealbumin 27.2 MG/DL (20-40)
[2018-04-28] MEDS: clonazePAM 0.5 MG TABLET PO SCH ×2 (09:16→20:54)
[2018-04-28] MEDS: ESCITALOPRAM 10 MG TABLET PO SCH (09:16)
[2018-04-28] MEDS: ZINC OXIDE PASTE 113 GM TUBE TOP SCH ×2 (09:17→20:56)
[2018-04-28] MEDS: SKIN HEALING OINT (AQUAPHOR) 50 GM TUBE TOP SCH ×2 (09:17→20:56)
[2018-04-28] MEDS: APIXABAN 5 MG TABLET PO SCH ×2 (09:17→20:54)
[2018-04-28] MEDS: PREGABALIN 25 MG CAPSULE PO SCH ×3 (09:17→20:54)
[2018-04-28] MEDS: DOCUSATE SODIUM 100 MG/10 ML UDCUP PO SCH (09:17)
[2018-04-28] MEDS: LIDOCAINE 5% PATCH TRANSDERM SCH ×2 (09:18→20:54)
[2018-04-28] MEDS: METOPROLOL TARTRATE 25 MG TABLET PO SCH ×2 (09:26→22:24)
[2018-04-28] MEDS: FERROUS GLUCONATE 324 MG TABLET PO SCH ×3 (09:26→20:54)
[2018-04-28] MEDS: LEVOFLOXACIN 750 MG TABLET PO SCH (17:03)
[2018-04-29] MEDS: oxyCODONE/ACETAMINOPHEN 5-325 MG TABLET PO PRN ×2 (02:55→16:40)
[2018-04-29] MEDS: ALBUTEROL/IPRATROPIUM 3 ML NEB RESP TX SCH ×6 (02:57→23:55)
[2018-04-29] MEDS: clonazePAM 0.5 MG TABLET PO SCH ×2 (09:22→21:52)
[2018-04-29] MEDS: METOPROLOL TARTRATE 25 MG TABLET PO SCH ×2 (09:22→22:06)
[2018-04-29] MEDS: SKIN HEALING OINT (AQUAPHOR) 50 GM TUBE TOP SCH ×2 (09:23→21:51)
[2018-04-29] MEDS: DOCUSATE SODIUM 100 MG/10 ML UDCUP PO SCH (09:23)
[2018-04-29] MEDS: ESCITALOPRAM 10 MG TABLET PO SCH (09:23)
[2018-04-29] MEDS: APIXABAN 5 MG TABLET PO SCH ×2 (09:23→21:51)
[2018-04-29] MEDS: FERROUS GLUCONATE 324 MG TABLET PO SCH ×3 (09:23→21:51)
[2018-04-29] MEDS: ZINC OXIDE PASTE 113 GM TUBE TOP SCH ×2 (09:23→21:51)
[2018-04-29] MEDS: PREGABALIN 25 MG CAPSULE PO SCH ×3 (09:24→21:52)
[2018-04-29] MEDS: LIDOCAINE 5% PATCH TRANSDERM SCH ×2 (09:24→21:52)
[2018-04-29] MEDS: LEVOFLOXACIN 750 MG TABLET PO SCH (16:40)
[2018-04-30] MEDS: oxyCODONE/ACETAMINOPHEN 5-325 MG TABLET PO PRN (02:16)
[2018-04-30] MEDS: ALBUTEROL/IPRATROPIUM 3 ML NEB RESP TX SCH ×5 (03:37→19:23)
[2018-04-30] MEDS: LIDOCAINE 5% PATCH TRANSDERM SCH ×2 (07:19→22:38)
[2018-04-30 07:46] LABS: Calcium 9.2 MG/DL (8.5-10.1)
[2018-04-30 07:47] LABS: Prealbumin 29.2 MG/DL (20-40)
[2018-04-30] MEDS: APIXABAN 5 MG TABLET PO SCH ×2 (09:20→22:38)
[2018-04-30] MEDS: METOPROLOL TARTRATE 25 MG TABLET PO SCH ×2 (09:20→22:37)
[2018-04-30] MEDS: PREGABALIN 25 MG CAPSULE PO SCH ×3 (09:20→22:37)
[2018-04-30] MEDS: FERROUS GLUCONATE 324 MG TABLET PO SCH ×3 (09:21→22:37)
[2018-04-30] MEDS: SKIN HEALING OINT (AQUAPHOR) 50 GM TUBE TOP SCH ×2 (09:21→22:37)
[2018-04-30] MEDS: DOCUSATE SODIUM 100 MG/10 ML UDCUP PO SCH (09:21)
[2018-04-30] MEDS: clonazePAM 0.5 MG TABLET PO SCH ×2 (09:21→22:37)
[2018-04-30] MEDS: ESCITALOPRAM 10 MG TABLET PO SCH (09:21)
[2018-04-30] MEDS: ZINC OXIDE PASTE 113 GM TUBE TOP SCH ×2 (11:22→22:38)
[2018-04-30] MEDS: fentaNYL 12 MCG/HR PATCH TRANSDERM SCH ×2 (13:57→14:38)
[2018-04-30] MEDS: LEVOFLOXACIN 750 MG TABLET PO SCH (16:54)
[2018-05-01] MEDS: ALBUTEROL/IPRATROPIUM 3 ML NEB RESP TX SCH ×7 (00:02→23:23)
[2018-05-01] MEDS: oxyCODONE/ACETAMINOPHEN 5-325 MG TABLET PO PRN ×3 (05:30→18:06)
[2018-05-01] MEDS: LIDOCAINE 5% PATCH TRANSDERM SCH ×2 (09:38→20:23)
[2018-05-01] MEDS: FERROUS GLUCONATE 324 MG TABLET PO SCH ×3 (09:39→20:23)
[2018-05-01] MEDS: ESCITALOPRAM 10 MG TABLET PO SCH (09:39)
[2018-05-01] MEDS: DOCUSATE SODIUM 100 MG/10 ML UDCUP PO SCH (09:39)
[2018-05-01] MEDS: clonazePAM 0.5 MG TABLET PO SCH ×2 (09:39→20:22)
[2018-05-01] MEDS: METOPROLOL TARTRATE 25 MG TABLET PO SCH ×2 (09:40→20:22)
[2018-05-01] MEDS: APIXABAN 5 MG TABLET PO SCH ×2 (09:40→20:22)
[2018-05-01] MEDS: PREGABALIN 25 MG CAPSULE PO SCH ×3 (09:40→20:22)
[2018-05-01] MEDS: ZINC OXIDE PASTE 113 GM TUBE TOP SCH ×2 (10:17→20:23)
[2018-05-01] MEDS: SKIN HEALING OINT (AQUAPHOR) 50 GM TUBE TOP SCH ×2 (10:17→20:23)
[2018-05-01] MEDS: LEVOFLOXACIN 750 MG TABLET PO SCH (18:06)
[2018-05-02] MEDS: ALBUTEROL/IPRATROPIUM 3 ML NEB RESP TX SCH ×6 (03:30→23:20)
[2018-05-02] MEDS: LIDOCAINE 5% PATCH TRANSDERM SCH ×3 (04:29→18:20)
[2018-05-02] MEDS: oxyCODONE/ACETAMINOPHEN 5-325 MG TABLET PO PRN ×4 (04:29→22:07)
[2018-05-02] MEDS: ESCITALOPRAM 10 MG TABLET PO SCH (09:17)
[2018-05-02] MEDS: PREGABALIN 25 MG CAPSULE PO SCH ×3 (09:17→22:06)
[2018-05-02] MEDS: clonazePAM 0.5 MG TABLET PO SCH ×2 (09:17→22:06)
[2018-05-02] MEDS: DOCUSATE SODIUM 100 MG/10 ML UDCUP PO SCH (09:17)
[2018-05-02] MEDS: FERROUS GLUCONATE 324 MG TABLET PO SCH ×3 (09:17→22:06)
[2018-05-02] MEDS: METOPROLOL TARTRATE 25 MG TABLET PO SCH ×2 (09:17→22:07)
[2018-05-02] MEDS: APIXABAN 5 MG TABLET PO SCH ×2 (09:17→22:06)
[2018-05-02] MEDS: ZINC OXIDE PASTE 113 GM TUBE TOP SCH ×2 (09:18→22:05)
[2018-05-02] MEDS: SKIN HEALING OINT (AQUAPHOR) 50 GM TUBE TOP SCH ×2 (09:18→22:05)
[2018-05-02] MEDS: LEVOFLOXACIN 750 MG TABLET PO SCH (14:55)
[2018-05-02] MEDS ORDERED: TUBERCULIN SKIN TEST 0.1 ML SYRINGE INTRADERM ONE (15:45)
[2018-05-02] MEDS: QUEtiapine 25 MG TABLET PO PRN (22:11)
[2018-05-03] MEDS: oxyCODONE/ACETAMINOPHEN 5-325 MG TABLET PO PRN ×3 (03:04→22:06)
[2018-05-03] MEDS: ALBUTEROL/IPRATROPIUM 3 ML NEB RESP TX SCH ×5 (03:20→19:39)
[2018-05-03] MEDS: DOCUSATE SODIUM 100 MG/10 ML UDCUP PO SCH (09:50)
[2018-05-03] MEDS: METOPROLOL TARTRATE 25 MG TABLET PO SCH ×2 (09:50→22:08)
[2018-05-03] MEDS: ESCITALOPRAM 10 MG TABLET PO SCH (09:50)
[2018-05-03] MEDS: PREGABALIN 25 MG CAPSULE PO SCH ×3 (09:50→22:06)
[2018-05-03] MEDS: clonazePAM 0.5 MG TABLET PO SCH ×2 (09:50→22:08)
[2018-05-03] MEDS: LIDOCAINE 5% PATCH TRANSDERM SCH ×3 (09:50→22:11)
[2018-05-03] MEDS: FERROUS GLUCONATE 324 MG TABLET PO SCH ×3 (09:51→22:08)
[2018-05-03] MEDS: fentaNYL 12 MCG/HR PATCH TRANSDERM SCH (09:51)
[2018-05-03] MEDS: APIXABAN 5 MG TABLET PO SCH ×2 (09:51→22:07)
[2018-05-03] MEDS: ZINC OXIDE PASTE 113 GM TUBE TOP SCH ×2 (09:52→22:10)
[2018-05-03] MEDS: SKIN HEALING OINT (AQUAPHOR) 50 GM TUBE TOP SCH ×2 (09:52→22:10)
[2018-05-03] MEDS: LEVOFLOXACIN 750 MG TABLET PO SCH (15:44)
[2018-05-03] MEDS: QUEtiapine 25 MG TABLET PO PRN (22:07)
[2018-05-04] MEDS: ALBUTEROL/IPRATROPIUM 3 ML NEB RESP TX SCH ×7 (00:49→22:49)
[2018-05-04] MEDS: oxyCODONE/ACETAMINOPHEN 5-325 MG TABLET PO PRN ×3 (01:32→12:12)
[2018-05-04] MEDS: LIDOCAINE 5% PATCH TRANSDERM SCH ×2 (06:00→18:06)
[2018-05-04] MEDS: ESCITALOPRAM 10 MG TABLET PO SCH (08:33)
[2018-05-04] MEDS: PREGABALIN 25 MG CAPSULE PO SCH ×3 (08:33→22:02)
[2018-05-04] MEDS: clonazePAM 0.5 MG TABLET PO SCH (08:33)
[2018-05-04] MEDS: APIXABAN 5 MG TABLET PO SCH ×2 (08:33→22:02)
[2018-05-04] MEDS: FERROUS GLUCONATE 324 MG TABLET PO SCH ×3 (08:33→22:02)
[2018-05-04] MEDS: DOCUSATE SODIUM 100 MG/10 ML UDCUP PO SCH (08:34)
[2018-05-04] MEDS: ZINC OXIDE PASTE 113 GM TUBE TOP SCH ×2 (12:17→22:03)
[2018-05-04] MEDS: SKIN HEALING OINT (AQUAPHOR) 50 GM TUBE TOP SCH ×2 (12:17→22:02)
[2018-05-04] MEDS: METOPROLOL TARTRATE 25 MG TABLET PO SCH ×2 (14:39→22:02)
[2018-05-04] MEDS: LEVOFLOXACIN 750 MG TABLET PO SCH (16:32)
[2018-05-04] MEDS ORDERED: oxyCODONE/ACETAMINOPHEN 5-325 MG TABLET PO ONE (17:36)
[2018-05-05] MEDS: ACETAMINOPHEN 325 MG/10.15 ML UDCUP PO PRN ×3 (01:55→14:37)
[2018-05-05] MEDS: ALBUTEROL/IPRATROPIUM 3 ML NEB RESP TX SCH ×6 (02:40→23:45)
[2018-05-05 06:35] LABS: Basophils % 0.3 % (0.0-0.8); Eosinophils # 0.4 10*3/uL (0.0-0.87); Eosinophils % 5.4 % (0.00-10.9); Hematocrit 34.1 VOL% (42.0-52.0); Hemoglobin 10.7 GM/DL (14.0-18.0); Immature Granulocytes % 0.3 %; Immature Granulocytes Absolute 0.02 #; Lymphocytes # 3.4 10*3/uL (1.4-4.0); Lymphocytes % 46.7 % (21.2-54.2); Mean Corpuscular HGB Conc 31.4 GM/DL (32-36); Mean Corpuscular Hemoglobin 29 PG (27-34); Mean Corpuscular Volume 91.9 FL (87-102); Mean Platelet Volume 10.6 FL (9.6-12.0); Monocytes # 0.5 10*3/uL (0.11-0.8); Monocytes % 6.5 % (1.7-12.7); Neutrophils % 40.8 % (38.7-73.9); Platelet Count 275 T/CUMM (130-400); Red Blood Count 3.71 MC/CUMM (3.8-5.5); White Blood Count 7.4 T/CUMM (4-12)
[2018-05-05 07:02] LABS: Calcium 9.6 MG/DL (8.5-10.1); Osmolality,Calculated 273.8 MOS/KG (273-304); Potassium 4.2 MMOL/L (3.5-5.1)
[2018-05-05] MEDS: LIDOCAINE 5% PATCH TRANSDERM SCH ×2 (07:22→18:11)
[2018-05-05] MEDS ORDERED: SODIUM CHLORIDE 0.9% 1,000 ML IV SCH (07:30)
[2018-05-05] MEDS: PREGABALIN 25 MG CAPSULE PO SCH ×3 (08:43→21:58)
[2018-05-05] MEDS: DOCUSATE SODIUM 100 MG/10 ML UDCUP PO SCH (08:43)
[2018-05-05] MEDS: ESCITALOPRAM 10 MG TABLET PO SCH (08:44)
[2018-05-05] MEDS: FERROUS GLUCONATE 324 MG TABLET PO SCH ×3 (08:44→21:58)
[2018-05-05] MEDS: APIXABAN 5 MG TABLET PO SCH ×2 (08:44→21:58)
[2018-05-05] MEDS: SKIN HEALING OINT (AQUAPHOR) 50 GM TUBE TOP SCH ×2 (09:00→21:59)
[2018-05-05] MEDS: METOPROLOL TARTRATE 25 MG TABLET PO SCH ×2 (09:38→21:58)
[2018-05-05] MEDS: ZINC OXIDE PASTE 113 GM TUBE TOP SCH ×2 (12:02→21:59)
[2018-05-06] MEDS: ALBUTEROL/IPRATROPIUM 3 ML NEB RESP TX SCH ×5 (03:45→19:25)
[2018-05-06] MEDS: ACETAMINOPHEN 325 MG/10.15 ML UDCUP PO PRN ×2 (06:18→14:44)
[2018-05-06] MEDS: fentaNYL 12 MCG/HR PATCH TRANSDERM SCH (09:09)
[2018-05-06] MEDS: ESCITALOPRAM 10 MG TABLET PO SCH (09:13)
[2018-05-06] MEDS: PREGABALIN 25 MG CAPSULE PO SCH ×3 (09:13→20:49)
[2018-05-06] MEDS: FERROUS GLUCONATE 324 MG TABLET PO SCH ×3 (09:14→20:49)
[2018-05-06] MEDS: DOCUSATE SODIUM 100 MG/10 ML UDCUP PO SCH (09:14)
[2018-05-06] MEDS: APIXABAN 5 MG TABLET PO SCH ×2 (09:14→20:48)
[2018-05-06] MEDS: SKIN HEALING OINT (AQUAPHOR) 50 GM TUBE TOP SCH ×2 (09:21→21:25)
[2018-05-06] MEDS: ZINC OXIDE PASTE 113 GM TUBE TOP SCH ×2 (09:22→21:25)
[2018-05-06] MEDS: LIDOCAINE 5% PATCH TRANSDERM SCH ×2 (09:22→20:48)
[2018-05-06] MEDS: METOPROLOL TARTRATE 25 MG TABLET PO SCH ×2 (10:17→20:50)
[2018-05-07] MEDS: ALBUTEROL/IPRATROPIUM 3 ML NEB RESP TX SCH ×7 (00:49→22:58)
[2018-05-07] MEDS: ACETAMINOPHEN 325 MG/10.15 ML UDCUP PO PRN ×2 (05:21→14:43)
[2018-05-07 05:54] LABS: Basophils % 0.3 % (0.0-0.8); Eosinophils # 0.4 10*3/uL (0.0-0.87); Eosinophils % 5.2 % (0.00-10.9); Hematocrit 33.4 VOL% (42.0-52.0); Hemoglobin 10.7 GM/DL (14.0-18.0); Immature Granulocytes % 0.3 %; Immature Granulocytes Absolute 0.02 #; Lymphocytes # 3.6 10*3/uL (1.4-4.0); Mean Corpuscular Hemoglobin 29 PG (27-34); Mean Corpuscular Volume 91.5 FL (87-102); Mean Platelet Volume 10.7 FL (9.6-12.0); Monocytes # 0.5 10*3/uL (0.11-0.8); Monocytes % 7.4 % (1.7-12.7); Neutrophils # 2.8 10*3/uL (1.4-7.4); Neutrophils % 37.8 % (38.7-73.9); Platelet Count 275 T/CUMM (130-400); Red Blood Count 3.65 MC/CUMM (3.8-5.5); Red Cell Distribution Width 14.7 % (9.3-17.3); White Blood Count 7.3 T/CUMM (4-12)
[2018-05-07 06:17] LABS: Eosinophils 5 % (0-10); Hypochromasia 1+; Lymphocytes 49 % (20-55); Platelet Estimate Adequate; Segmented Neutrophils 41 % (50-85); Total Cells Counted 100
[2018-05-07 06:29] LABS: Calcium 9.7 MG/DL (8.5-10.1); Osmolality,Calculated 277.5 MOS/KG (273-304); Potassium 3.6 MMOL/L (3.5-5.1); Prealbumin 30.7 MG/DL (20-40)
[2018-05-07] MEDS: SKIN HEALING OINT (AQUAPHOR) 50 GM TUBE TOP SCH ×2 (10:03→20:55)
[2018-05-07] MEDS: FERROUS GLUCONATE 324 MG TABLET PO SCH ×3 (10:03→20:55)
[2018-05-07] MEDS: METOPROLOL TARTRATE 25 MG TABLET PO SCH ×2 (10:03→20:56)
[2018-05-07] MEDS: LIDOCAINE 5% PATCH TRANSDERM SCH ×2 (10:03→21:03)
[2018-05-07] MEDS: DOCUSATE SODIUM 100 MG/10 ML UDCUP PO SCH (10:03)
[2018-05-07] MEDS: ZINC OXIDE PASTE 113 GM TUBE TOP SCH ×2 (10:03→20:56)
[2018-05-07] MEDS: PREGABALIN 25 MG CAPSULE PO SCH ×3 (10:03→20:55)
[2018-05-07] MEDS: ESCITALOPRAM 10 MG TABLET PO SCH (10:03)
[2018-05-07] MEDS: APIXABAN 5 MG TABLET PO SCH ×2 (10:03→20:55)
[2018-05-08] MEDS: ACETAMINOPHEN 325 MG/10.15 ML UDCUP PO PRN ×3 (00:44→15:25)
[2018-05-08] MEDS: ALBUTEROL/IPRATROPIUM 3 ML NEB RESP TX SCH ×6 (02:58→23:00)
[2018-05-08] MEDS: ESCITALOPRAM 10 MG TABLET PO SCH (09:40)
[2018-05-08] MEDS: DOCUSATE SODIUM 100 MG/10 ML UDCUP PO SCH (09:40)
[2018-05-08] MEDS: PREGABALIN 25 MG CAPSULE PO SCH ×3 (09:40→22:21)
[2018-05-08] MEDS: FERROUS GLUCONATE 324 MG TABLET PO SCH ×3 (09:41→22:21)
[2018-05-08] MEDS: METOPROLOL TARTRATE 25 MG TABLET PO SCH (09:41)
[2018-05-08] MEDS: SKIN HEALING OINT (AQUAPHOR) 50 GM TUBE TOP SCH ×2 (09:41→22:22)
[2018-05-08] MEDS: APIXABAN 5 MG TABLET PO SCH ×2 (09:41→22:21)
[2018-05-08] MEDS: LIDOCAINE 5% PATCH TRANSDERM SCH ×2 (09:41→22:21)
[2018-05-08] MEDS: ZINC OXIDE PASTE 113 GM TUBE TOP SCH ×2 (09:41→22:22)
[2018-05-09] MEDS: ACETAMINOPHEN 325 MG/10.15 ML UDCUP PO PRN ×2 (03:00→21:35)
[2018-05-09] MEDS: ALBUTEROL/IPRATROPIUM 3 ML NEB RESP TX SCH ×6 (03:00→23:00)
[2018-05-09] MEDS: METOPROLOL TARTRATE 25 MG TABLET PO SCH ×3 (03:14→22:12)
[2018-05-09] MEDS ORDERED: MAGNESIUM SULF RIDER 2 GM in PREMIX 1 EACH IV ONE (09:48)
[2018-05-09] MEDS: LIDOCAINE 5% PATCH TRANSDERM SCH ×2 (10:25→21:35)
[2018-05-09] MEDS: ESCITALOPRAM 10 MG TABLET PO SCH (10:26)
[2018-05-09] MEDS: SKIN HEALING OINT (AQUAPHOR) 50 GM TUBE TOP SCH ×2 (10:26→22:12)
[2018-05-09] MEDS: PREGABALIN 25 MG CAPSULE PO SCH ×3 (10:26→21:34)
[2018-05-09] MEDS: DOCUSATE SODIUM 100 MG/10 ML UDCUP PO SCH (10:26)
[2018-05-09] MEDS: FERROUS GLUCONATE 324 MG TABLET PO SCH ×3 (10:26→21:34)
[2018-05-09] MEDS: APIXABAN 5 MG TABLET PO SCH ×2 (10:26→21:34)
[2018-05-09] MEDS: ZINC OXIDE PASTE 113 GM TUBE TOP SCH ×2 (10:27→22:12)
[2018-05-09] MEDS: fentaNYL 12 MCG/HR PATCH TRANSDERM SCH (11:02)
[2018-05-10] MEDS: ALBUTEROL/IPRATROPIUM 3 ML NEB RESP TX SCH ×6 (04:00→23:49)
[2018-05-10] MEDS: LIDOCAINE 5% PATCH TRANSDERM SCH ×2 (09:42→21:27)
[2018-05-10] MEDS: DOCUSATE SODIUM 100 MG/10 ML UDCUP PO SCH (09:42)
[2018-05-10] MEDS: FERROUS GLUCONATE 324 MG TABLET PO SCH ×3 (09:42→21:27)
[2018-05-10] MEDS: APIXABAN 5 MG TABLET PO SCH ×2 (09:43→21:27)
[2018-05-10] MEDS: SKIN HEALING OINT (AQUAPHOR) 50 GM TUBE TOP SCH ×2 (09:43→21:27)
[2018-05-10] MEDS: ZINC OXIDE PASTE 113 GM TUBE TOP SCH ×2 (09:43→21:27)
[2018-05-10] MEDS: PREGABALIN 25 MG CAPSULE PO SCH ×3 (09:43→21:27)
[2018-05-10] MEDS: ESCITALOPRAM 10 MG TABLET PO SCH (09:43)
[2018-05-10] MEDS: ACETAMINOPHEN 325 MG/10.15 ML UDCUP PO PRN ×2 (09:54→18:06)
[2018-05-10] MEDS: METOPROLOL TARTRATE 25 MG TABLET PO SCH ×2 (12:49→21:28)
[2018-05-11] MEDS: ALBUTEROL/IPRATROPIUM 3 ML NEB RESP TX SCH ×5 (03:39→19:48)
[2018-05-11] MEDS: ESCITALOPRAM 10 MG TABLET PO SCH (09:00)
[2018-05-11] MEDS: APIXABAN 5 MG TABLET PO SCH ×2 (09:00→22:11)
[2018-05-11] MEDS: LIDOCAINE 5% PATCH TRANSDERM SCH ×2 (09:00→22:09)
[2018-05-11] MEDS: DOCUSATE SODIUM 100 MG/10 ML UDCUP PO SCH (09:00)
[2018-05-11] MEDS: METOPROLOL TARTRATE 25 MG TABLET PO SCH ×2 (09:00→22:10)
[2018-05-11] MEDS: PREGABALIN 25 MG CAPSULE PO SCH ×3 (09:00→22:10)
[2018-05-11] MEDS: FERROUS GLUCONATE 324 MG TABLET PO SCH ×3 (09:00→22:11)
[2018-05-11] MEDS: SKIN HEALING OINT (AQUAPHOR) 50 GM TUBE TOP SCH ×2 (10:43→22:11)
[2018-05-11] MEDS: ZINC OXIDE PASTE 113 GM TUBE TOP SCH ×2 (10:44→22:11)
[2018-05-12] MEDS: ALBUTEROL/IPRATROPIUM 3 ML NEB RESP TX SCH ×7 (00:30→22:59)
[2018-05-12] MEDS: LIDOCAINE 5% PATCH TRANSDERM SCH ×2 (07:27→18:43)
[2018-05-12] MEDS: fentaNYL 12 MCG/HR PATCH TRANSDERM SCH (09:45)
[2018-05-12] MEDS: ESCITALOPRAM 10 MG TABLET PO SCH (09:48)
[2018-05-12] MEDS: PREGABALIN 25 MG CAPSULE PO SCH ×3 (09:48→22:00)
[2018-05-12] MEDS: SKIN HEALING OINT (AQUAPHOR) 50 GM TUBE TOP SCH ×2 (09:49→22:02)
[2018-05-12] MEDS: ZINC OXIDE PASTE 113 GM TUBE TOP SCH ×2 (09:49→22:02)
[2018-05-12] MEDS: METOPROLOL TARTRATE 25 MG TABLET PO SCH ×2 (09:49→22:00)
[2018-05-12] MEDS: APIXABAN 5 MG TABLET PO SCH ×2 (09:49→22:01)
[2018-05-12] MEDS: DOCUSATE SODIUM 100 MG/10 ML UDCUP PO SCH (09:49)
[2018-05-12] MEDS: FERROUS GLUCONATE 324 MG TABLET PO SCH ×3 (09:49→22:00)
[2018-05-12] MEDS: ACETAMINOPHEN 325 MG/10.15 ML UDCUP PO PRN (22:01)
[2018-05-13] MEDS: ALBUTEROL/IPRATROPIUM 3 ML NEB RESP TX SCH ×6 (02:52→23:46)
[2018-05-13] MEDS ORDERED: metroNIDAZOLE INJ 500 MG in PREMIX 1 EACH IV SCH (04:30)
[2018-05-13] MEDS: ACETAMINOPHEN 325 MG/10.15 ML UDCUP PO PRN (04:32)
[2018-05-13] MEDS: LIDOCAINE 5% PATCH TRANSDERM SCH (06:38)
[2018-05-13] MEDS: ALUMINUM/MAGNES/SIMETH MAX STR 30 ML UDCUP PER TUBE PRN (09:36)
[2018-05-13] MEDS: FERROUS SULFATE 300 MG/5 ML UDCUP PO SCH ×3 (09:36→21:47)
[2018-05-13] MEDS: PREGABALIN 25 MG CAPSULE PER TUBE SCH ×3 (09:37→21:46)
[2018-05-13] MEDS: METOPROLOL TARTRATE 25 MG TABLET PER TUBE SCH ×2 (09:37→21:46)
[2018-05-13] MEDS: DOCUSATE SODIUM 100 MG/10 ML UDCUP PER TUBE SCH (09:37)
[2018-05-13] MEDS: SKIN HEALING OINT (AQUAPHOR) 50 GM TUBE TOP SCH ×2 (09:38→21:47)
[2018-05-13] MEDS: ZINC OXIDE PASTE 113 GM TUBE TOP SCH ×2 (09:39→21:47)
[2018-05-13] MEDS: ESCITALOPRAM 10 MG TABLET PER TUBE SCH (10:01)
[2018-05-13] MEDS: APIXABAN 5 MG TABLET PER TUBE SCH ×2 (10:01→21:47)
[2018-05-13] MEDS ORDERED: VANCOMYCIN 50 MG/ML 60 ML/BOTTLE PO SCH (12:00)
[2018-05-13] MEDS: VANCOMYCIN 50 MG/ML 60 ML/BOTTLE PER TUBE SCH ×2 (13:14→19:32)
[2018-05-13] MEDS: ACETAMINOPHEN 325 MG/10.15 ML UDCUP PER TUBE PRN (21:44)
[2018-05-13] MEDS: QUEtiapine 25 MG TABLET PER TUBE PRN (21:47)
[2018-05-14] MEDS: LIDOCAINE 5% PATCH TRANSDERM SCH ×2 (00:21→10:59)
[2018-05-14] MEDS: ACETAMINOPHEN 325 MG/10.15 ML UDCUP PER TUBE PRN (03:23)
[2018-05-14] MEDS: VANCOMYCIN 50 MG/ML 60 ML/BOTTLE PER TUBE SCH ×4 (03:23→20:57)
[2018-05-14] MEDS: ALBUTEROL/IPRATROPIUM 3 ML NEB RESP TX SCH ×6 (03:47→23:02)
[2018-05-14 06:22] LABS: Basophils % 0.3 % (0.0-0.8); Eosinophils # 0.3 10*3/uL (0.0-0.87); Eosinophils % 4.4 % (0.00-10.9); Hematocrit 33.7 VOL% (42.0-52.0); Hemoglobin 10.6 GM/DL (14.0-18.0); Immature Granulocytes % 0.3 %; Immature Granulocytes Absolute 0.02 #; Lymphocytes # 3.5 10*3/uL (1.4-4.0); Lymphocytes % 46.3 % (21.2-54.2); Mean Corpuscular HGB Conc 31.5 GM/DL (32-36); Mean Corpuscular Hemoglobin 29 PG (27-34); Mean Corpuscular Volume 93.4 FL (87-102); Mean Platelet Volume 11.1 FL (9.6-12.0); Monocytes # 0.6 10*3/uL (0.11-0.8); Monocytes % 8.2 % (1.7-12.7); Neutrophils # 3.1 10*3/uL (1.4-7.4); Neutrophils % 40.5 % (38.7-73.9); Platelet Count 228 T/CUMM (130-400); Red Blood Count 3.61 MC/CUMM (3.8-5.5); Red Cell Distribution Width 14.5 % (9.3-17.3); White Blood Count 7.6 T/CUMM (4-12)
[2018-05-14 06:27] LABS: Calcium 9.2 MG/DL (8.5-10.1); Osmolality,Calculated 276.5 MOS/KG (273-304); Potassium 4.1 MMOL/L (3.5-5.1)
[2018-05-14] MEDS: DOCUSATE SODIUM 100 MG/10 ML UDCUP PER TUBE SCH (08:12)
[2018-05-14] MEDS: METOPROLOL TARTRATE 25 MG TABLET PER TUBE SCH ×2 (10:58→20:47)
[2018-05-14] MEDS: FERROUS SULFATE 300 MG/5 ML UDCUP PO SCH ×3 (10:58→20:47)
[2018-05-14] MEDS: SKIN HEALING OINT (AQUAPHOR) 50 GM TUBE TOP SCH ×2 (10:59→20:48)
[2018-05-14] MEDS: PREGABALIN 25 MG CAPSULE PER TUBE SCH ×3 (10:59→20:47)
[2018-05-14] MEDS: ZINC OXIDE PASTE 113 GM TUBE TOP SCH ×2 (10:59→20:48)
[2018-05-14] MEDS: ESCITALOPRAM 10 MG TABLET PER TUBE SCH (10:59)
[2018-05-14] MEDS: APIXABAN 5 MG TABLET PER TUBE SCH ×2 (10:59→20:47)
[2018-05-14] MEDS: traMADol 50 MG TABLET PEG PRN ×2 (13:04→20:57)
[2018-05-14] MEDS: QUEtiapine 25 MG TABLET PER TUBE PRN (20:57)
[2018-05-15] MEDS: ALBUTEROL/IPRATROPIUM 3 ML NEB RESP TX SCH ×5 (02:40→19:54)
[2018-05-15] MEDS: LIDOCAINE 5% PATCH TRANSDERM SCH ×3 (02:43→21:24)
[2018-05-15] MEDS: VANCOMYCIN 50 MG/ML 60 ML/BOTTLE PER TUBE SCH ×4 (04:02→22:11)
[2018-05-15] MEDS: traMADol 50 MG TABLET PEG PRN ×2 (04:02→22:09)
[2018-05-15] MEDS: METOPROLOL TARTRATE 25 MG TABLET PER TUBE SCH ×2 (08:03→22:08)
[2018-05-15] MEDS: FERROUS SULFATE 300 MG/5 ML UDCUP PO SCH ×3 (08:03→22:10)
[2018-05-15] MEDS: APIXABAN 5 MG TABLET PER TUBE SCH ×2 (08:03→22:10)
[2018-05-15] MEDS: ESCITALOPRAM 10 MG TABLET PER TUBE SCH (08:04)
[2018-05-15] MEDS: DOCUSATE SODIUM 100 MG/10 ML UDCUP PER TUBE SCH (08:04)
[2018-05-15] MEDS: SKIN HEALING OINT (AQUAPHOR) 50 GM TUBE TOP SCH ×2 (08:04→22:10)
[2018-05-15] MEDS: PREGABALIN 25 MG CAPSULE PER TUBE SCH ×3 (08:04→22:09)
[2018-05-15] MEDS: ZINC OXIDE PASTE 113 GM TUBE TOP SCH ×2 (08:04→22:10)
[2018-05-15] MEDS: ACETAMINOPHEN 325 MG/10.15 ML UDCUP PER TUBE PRN ×2 (13:16→18:30)
[2018-05-15] MEDS: QUEtiapine 25 MG TABLET PER TUBE PRN (22:09)
[2018-05-16] MEDS: ALBUTEROL/IPRATROPIUM 3 ML NEB RESP TX SCH ×7 (00:21→23:47)
[2018-05-16] MEDS: VANCOMYCIN 50 MG/ML 60 ML/BOTTLE PER TUBE SCH ×4 (04:00→21:23)
[2018-05-16] MEDS: traMADol 50 MG TABLET PEG PRN ×2 (05:30→21:21)
[2018-05-16] MEDS: LIDOCAINE 5% PATCH TRANSDERM SCH ×4 (08:49→21:36)
[2018-05-16] MEDS: PREGABALIN 25 MG CAPSULE PER TUBE SCH ×3 (09:35→21:21)
[2018-05-16] MEDS: APIXABAN 5 MG TABLET PER TUBE SCH ×2 (09:35→21:21)
[2018-05-16] MEDS: FERROUS SULFATE 300 MG/5 ML UDCUP PO SCH ×3 (09:35→21:21)
[2018-05-16] MEDS: SKIN HEALING OINT (AQUAPHOR) 50 GM TUBE TOP SCH ×2 (09:35→21:30)
[2018-05-16] MEDS: DOCUSATE SODIUM 100 MG/10 ML UDCUP PER TUBE SCH (09:35)
[2018-05-16] MEDS: ESCITALOPRAM 10 MG TABLET PER TUBE SCH (09:35)
[2018-05-16] MEDS: METOPROLOL TARTRATE 25 MG TABLET PER TUBE SCH ×2 (09:36→21:30)
[2018-05-16] MEDS: ZINC OXIDE PASTE 113 GM TUBE TOP SCH ×2 (09:37→21:30)
[2018-05-17] MEDS: VANCOMYCIN 50 MG/ML 60 ML/BOTTLE PER TUBE SCH ×4 (03:25→22:04)
[2018-05-17] MEDS: ALBUTEROL/IPRATROPIUM 3 ML NEB RESP TX SCH ×6 (03:50→22:53)
[2018-05-17] MEDS: METOPROLOL TARTRATE 25 MG TABLET PER TUBE SCH ×2 (09:34→22:04)
[2018-05-17] MEDS: SKIN HEALING OINT (AQUAPHOR) 50 GM TUBE TOP SCH ×2 (09:34→20:38)
[2018-05-17] MEDS: DOCUSATE SODIUM 100 MG/10 ML UDCUP PER TUBE SCH (09:34)
[2018-05-17] MEDS: APIXABAN 5 MG TABLET PER TUBE SCH ×2 (09:34→20:37)
[2018-05-17] MEDS: ESCITALOPRAM 10 MG TABLET PER TUBE SCH (09:34)
[2018-05-17] MEDS: ZINC OXIDE PASTE 113 GM TUBE TOP SCH ×2 (09:34→20:38)
[2018-05-17] MEDS: FERROUS SULFATE 300 MG/5 ML UDCUP PO SCH ×3 (09:34→20:37)
[2018-05-17] MEDS: PREGABALIN 25 MG CAPSULE PER TUBE SCH ×3 (09:34→20:37)
[2018-05-17] MEDS: LIDOCAINE 5% PATCH TRANSDERM SCH ×2 (09:35→20:38)
[2018-05-17] MEDS: traMADol 50 MG TABLET PEG PRN (15:07)
[2018-05-17] MEDS: ACETAMINOPHEN 325 MG/10.15 ML UDCUP PER TUBE PRN (20:37)
[2018-05-18] MEDS: VANCOMYCIN 50 MG/ML 60 ML/BOTTLE PER TUBE SCH ×4 (03:41→21:47)
[2018-05-18] MEDS: ALBUTEROL/IPRATROPIUM 3 ML NEB RESP TX SCH ×6 (03:50→23:38)
[2018-05-18] MEDS: LIDOCAINE 5% PATCH TRANSDERM SCH ×2 (07:43→21:44)
[2018-05-18] MEDS: METOPROLOL TARTRATE 25 MG TABLET PER TUBE SCH ×2 (08:33→21:46)
[2018-05-18] MEDS: SKIN HEALING OINT (AQUAPHOR) 50 GM TUBE TOP SCH ×3 (08:33→21:48)
[2018-05-18] MEDS: FERROUS SULFATE 300 MG/5 ML UDCUP PO SCH ×3 (08:33→21:45)
[2018-05-18] MEDS: PREGABALIN 25 MG CAPSULE PER TUBE SCH ×3 (08:33→21:45)
[2018-05-18] MEDS: ZINC OXIDE PASTE 113 GM TUBE TOP SCH ×2 (08:33→21:48)
[2018-05-18] MEDS: DOCUSATE SODIUM 100 MG/10 ML UDCUP PER TUBE SCH (08:33)
[2018-05-18] MEDS: APIXABAN 5 MG TABLET PER TUBE SCH ×2 (08:33→21:45)
[2018-05-18] MEDS: ESCITALOPRAM 10 MG TABLET PER TUBE SCH (08:33)
[2018-05-18] MEDS: traMADol 50 MG TABLET PEG PRN (21:52)
[2018-05-18] MEDS: ALUMINUM/MAGNES/SIMETH MAX STR 30 ML UDCUP PER TUBE PRN (21:53)
[2018-05-19] MEDS: ALBUTEROL/IPRATROPIUM 3 ML NEB RESP TX SCH ×6 (03:03→23:19)
[2018-05-19] MEDS: VANCOMYCIN 50 MG/ML 60 ML/BOTTLE PER TUBE SCH ×4 (04:23→23:15)
[2018-05-19] MEDS: PREGABALIN 25 MG CAPSULE PER TUBE SCH ×3 (10:10→23:15)
[2018-05-19] MEDS: ESCITALOPRAM 10 MG TABLET PER TUBE SCH (10:11)
[2018-05-19] MEDS: METOPROLOL TARTRATE 25 MG TABLET PER TUBE SCH ×2 (10:11→23:16)
[2018-05-19] MEDS: SKIN HEALING OINT (AQUAPHOR) 50 GM TUBE TOP SCH ×2 (10:13→23:14)
[2018-05-19] MEDS: FERROUS SULFATE 300 MG/5 ML UDCUP PO SCH ×3 (10:13→23:16)
[2018-05-19] MEDS: LIDOCAINE 5% PATCH TRANSDERM SCH ×2 (10:13→23:14)
[2018-05-19] MEDS: ZINC OXIDE PASTE 113 GM TUBE TOP SCH ×2 (10:13→23:14)
[2018-05-19] MEDS: DOCUSATE SODIUM 100 MG/10 ML UDCUP PER TUBE SCH (10:13)
[2018-05-19] MEDS: APIXABAN 5 MG TABLET PER TUBE SCH ×2 (10:14→23:15)
[2018-05-19] MEDS: ACETAMINOPHEN 325 MG/10.15 ML UDCUP PER TUBE PRN (14:55)
[2018-05-19] MEDS: traMADol 50 MG TABLET PEG PRN (23:15)
[2018-05-20] MEDS: ALBUTEROL/IPRATROPIUM 3 ML NEB RESP TX SCH ×5 (02:44→19:40)
[2018-05-20] MEDS: VANCOMYCIN 50 MG/ML 60 ML/BOTTLE PER TUBE SCH ×4 (05:07→22:41)
[2018-05-20] MEDS: LIDOCAINE 5% PATCH TRANSDERM SCH ×2 (09:34→22:24)
[2018-05-20] MEDS: FERROUS SULFATE 300 MG/5 ML UDCUP PO SCH ×3 (09:35→22:23)
[2018-05-20] MEDS: SKIN HEALING OINT (AQUAPHOR) 50 GM TUBE TOP SCH ×2 (09:35→22:24)
[2018-05-20] MEDS: DOCUSATE SODIUM 100 MG/10 ML UDCUP PER TUBE SCH (09:36)
[2018-05-20] MEDS: ESCITALOPRAM 10 MG TABLET PER TUBE SCH (09:36)
[2018-05-20] MEDS: APIXABAN 5 MG TABLET PER TUBE SCH ×2 (09:36→22:24)
[2018-05-20] MEDS: ZINC OXIDE PASTE 113 GM TUBE TOP SCH ×2 (09:36→22:24)
[2018-05-20] MEDS: METOPROLOL TARTRATE 25 MG TABLET PER TUBE SCH ×2 (09:38→22:25)
[2018-05-20] MEDS: PREGABALIN 25 MG CAPSULE PER TUBE SCH ×3 (09:38→22:23)
[2018-05-20] MEDS: ALUMINUM/MAGNES/SIMETH MAX STR 30 ML UDCUP PER TUBE PRN ×2 (17:54→22:22)
[2018-05-20] MEDS: traMADol 50 MG TABLET PEG PRN (22:23)
[2018-05-21] MEDS: ALBUTEROL/IPRATROPIUM 3 ML NEB RESP TX SCH ×6 (00:08→19:40)
[2018-05-21] MEDS: ACETAMINOPHEN 325 MG/10.15 ML UDCUP PER TUBE PRN ×2 (04:54→15:55)
[2018-05-21] MEDS: VANCOMYCIN 50 MG/ML 60 ML/BOTTLE PER TUBE SCH ×4 (04:54→22:03)
[2018-05-21 06:19] LABS: Calcium 9.9 MG/DL (8.5-10.1); Osmolality,Calculated 277.5 MOS/KG (273-304); Prealbumin 30.3 MG/DL (20-40)
[2018-05-21] MEDS: APIXABAN 5 MG TABLET PER TUBE SCH ×2 (10:26→21:01)
[2018-05-21] MEDS: PREGABALIN 25 MG CAPSULE PER TUBE SCH ×3 (10:26→22:03)
[2018-05-21] MEDS: DOCUSATE SODIUM 100 MG/10 ML UDCUP PER TUBE SCH (10:26)
[2018-05-21] MEDS: ESCITALOPRAM 10 MG TABLET PER TUBE SCH (10:26)
[2018-05-21] MEDS: ZINC OXIDE PASTE 113 GM TUBE TOP SCH ×2 (10:27→21:00)
[2018-05-21] MEDS: SKIN HEALING OINT (AQUAPHOR) 50 GM TUBE TOP SCH ×2 (10:27→21:00)
[2018-05-21] MEDS: LIDOCAINE 5% PATCH TRANSDERM SCH ×2 (10:27→20:59)
[2018-05-21] MEDS: FERROUS SULFATE 300 MG/5 ML UDCUP PO SCH ×3 (10:27→21:01)
[2018-05-21] MEDS: METOPROLOL TARTRATE 25 MG TABLET PER TUBE SCH ×2 (10:28→21:01)
[2018-05-21] MEDS: AMPICILLIN/SULBACTAM 1,500 MG in SODIUM CHLORIDE 0.9% 100 ML IV SCH ×2 (12:40→19:45)
[2018-05-21 13:30] LABS: Basophils % 0.2 % (0.0-0.8); Eosinophils # 0.2 10*3/uL (0.0-0.87); Eosinophils % 2.1 % (0.00-10.9); Hematocrit 39.8 VOL% (42.0-52.0); Hemoglobin 12.7 GM/DL (14.0-18.0); Immature Granulocytes % 0.2 %; Immature Granulocytes Absolute 0.02 #; Lymphocytes # 3.6 10*3/uL (1.4-4.0); Lymphocytes % 31.4 % (21.2-54.2); Mean Corpuscular HGB Conc 31.9 GM/DL (32-36); Mean Corpuscular Hemoglobin 29 PG (27-34); Mean Corpuscular Volume 90.5 FL (87-102); Mean Platelet Volume 11.4 FL (9.6-12.0); Monocytes # 1.2 10*3/uL (0.11-0.8); Monocytes % 10.3 % (1.7-12.7); Neutrophils # 6.5 10*3/uL (1.4-7.4); Neutrophils % 55.8 % (38.7-73.9); Platelet Count 252 T/CUMM (130-400); White Blood Count 11.6 T/CUMM (4-12)
[2018-05-21 18:07] LABS: Calcium 9.4 MG/DL (8.5-10.1); Osmolality,Calculated 285.5 MOS/KG (273-304); Potassium 3.9 MMOL/L (3.5-5.1)
[2018-05-21] MEDS ORDERED: MIDAZOLAM 2 MG/2 ML VIAL ONE (19:04)
[2018-05-21] MEDS ORDERED: MIDAZOLAM 2 MG/2 ML VIAL IV ONE (19:05)
[2018-05-21] MEDS: methylPREDNISolone SOD SUC 40 MG/1 ML VIAL IV SCH (20:55)
[2018-05-21] MEDS: QUEtiapine 25 MG TABLET PER TUBE PRN (20:57)
[2018-05-21] MEDS: traMADol 50 MG TABLET PEG PRN (20:57)
[2018-05-22] MEDS: ALBUTEROL/IPRATROPIUM 3 ML NEB RESP TX SCH ×6 (00:18→19:24)
[2018-05-22] MEDS: AMPICILLIN/SULBACTAM 1,500 MG in SODIUM CHLORIDE 0.9% 100 ML IV SCH ×4 (02:13→20:23)
[2018-05-22] MEDS: VANCOMYCIN 50 MG/ML 60 ML/BOTTLE PER TUBE SCH ×4 (03:55→20:25)
[2018-05-22] MEDS: methylPREDNISolone SOD SUC 40 MG/1 ML VIAL IV SCH ×3 (04:00→20:24)
[2018-05-22 07:07] LABS: Basophils % 0.1 % (0.0-0.8); Hematocrit 38.9 VOL% (42.0-52.0); Hemoglobin 12.6 GM/DL (14.0-18.0); Immature Granulocytes % 0.4 %; Immature Granulocytes Absolute 0.06 #; Lymphocytes # 2.5 10*3/uL (1.4-4.0); Lymphocytes % 16.5 % (21.2-54.2); Mean Corpuscular HGB Conc 32.4 GM/DL (32-36); Mean Corpuscular Hemoglobin 29 PG (27-34); Mean Corpuscular Volume 90.7 FL (87-102); Mean Platelet Volume 11.6 FL (9.6-12.0); Monocytes # 0.2 10*3/uL (0.11-0.8); Monocytes % 1.3 % (1.7-12.7); Neutrophils # 12.3 10*3/uL (1.4-7.4); Neutrophils % 81.7 % (38.7-73.9); Platelet Count 259 T/CUMM (130-400); Red Blood Count 4.29 MC/CUMM (3.8-5.5)
[2018-05-22] MEDS: DORNASE ALFA 2.5 MG/2.5 ML VIAL RESP TX SCH ×2 (07:20→19:22)
[2018-05-22] MEDS: ACETAMINOPHEN 325 MG/10.15 ML UDCUP PER TUBE PRN (08:15)
[2018-05-22] MEDS: APIXABAN 5 MG TABLET PER TUBE SCH ×2 (08:36→20:23)
[2018-05-22] MEDS: DOCUSATE SODIUM 100 MG/10 ML UDCUP PER TUBE SCH (08:36)
[2018-05-22] MEDS: FERROUS SULFATE 300 MG/5 ML UDCUP PO SCH ×3 (08:36→20:25)
[2018-05-22] MEDS: ESCITALOPRAM 10 MG TABLET PER TUBE SCH (08:36)
[2018-05-22] MEDS: LIDOCAINE 5% PATCH TRANSDERM SCH ×4 (08:37→20:24)
[2018-05-22] MEDS: SKIN HEALING OINT (AQUAPHOR) 50 GM TUBE TOP SCH ×2 (08:38→20:26)
[2018-05-22] MEDS: METOPROLOL TARTRATE 25 MG TABLET PER TUBE SCH ×2 (08:39→20:23)
[2018-05-22] MEDS: ZINC OXIDE PASTE 113 GM TUBE TOP SCH ×2 (09:25→20:25)
[2018-05-22] MEDS: PREGABALIN 25 MG CAPSULE PER TUBE SCH ×3 (11:49→20:23)
[2018-05-22] MEDS: traMADol 50 MG TABLET PO PRN (13:25)
[2018-05-22] MEDS: ALUMINUM/MAGNES/SIMETH MAX STR 30 ML UDCUP PER TUBE PRN ×2 (17:15→20:25)
[2018-05-23] MEDS: ALBUTEROL/IPRATROPIUM 3 ML NEB RESP TX SCH ×6 (00:21→19:28)
[2018-05-23] MEDS: AMPICILLIN/SULBACTAM 1,500 MG in SODIUM CHLORIDE 0.9% 100 ML IV SCH ×4 (02:15→21:20)
[2018-05-23] MEDS: methylPREDNISolone SOD SUC 40 MG/1 ML VIAL IV SCH ×3 (03:23→21:20)
[2018-05-23] MEDS: VANCOMYCIN 50 MG/ML 60 ML/BOTTLE PER TUBE SCH ×4 (03:23→21:00)
[2018-05-23 04:22] LABS: Hematocrit 33.3 VOL% (42.0-52.0); Hemoglobin 10.6 GM/DL (14.0-18.0); Immature Granulocytes % 0.4 %; Immature Granulocytes Absolute 0.04 #; Lymphocytes # 2.5 10*3/uL (1.4-4.0); Lymphocytes % 27.6 % (21.2-54.2); Mean Corpuscular HGB Conc 31.8 GM/DL (32-36); Mean Corpuscular Hemoglobin 29 PG (27-34); Mean Corpuscular Volume 92.5 FL (87-102); Mean Platelet Volume 11.1 FL (9.6-12.0); Monocytes # 0.6 10*3/uL (0.11-0.8); Monocytes % 6.7 % (1.7-12.7); Neutrophils # 5.9 10*3/uL (1.4-7.4); Neutrophils % 65.3 % (38.7-73.9); Platelet Count 225 T/CUMM (130-400); Red Cell Distribution Width 13.6 % (9.3-17.3)
[2018-05-23] MEDS: DORNASE ALFA 2.5 MG/2.5 ML VIAL RESP TX SCH ×2 (08:26→19:28)
[2018-05-23] MEDS: LIDOCAINE 5% PATCH TRANSDERM SCH (08:47)
[2018-05-23] MEDS: FERROUS SULFATE 300 MG/5 ML UDCUP PO SCH ×3 (09:29→21:16)
[2018-05-23] MEDS: DOCUSATE SODIUM 100 MG/10 ML UDCUP PER TUBE SCH (09:29)
[2018-05-23] MEDS: ESCITALOPRAM 10 MG TABLET PER TUBE SCH (09:30)
[2018-05-23] MEDS: METOPROLOL TARTRATE 25 MG TABLET PER TUBE SCH (09:31)
[2018-05-23] MEDS: APIXABAN 5 MG TABLET PER TUBE SCH ×2 (09:32→21:17)
[2018-05-23] MEDS: PREGABALIN 25 MG CAPSULE PER TUBE SCH ×3 (09:42→21:17)
[2018-05-23] MEDS: ALUMINUM/MAGNES/SIMETH MAX STR 30 ML UDCUP PER TUBE PRN (09:45)
[2018-05-23] MEDS: ZINC OXIDE PASTE 113 GM TUBE TOP SCH ×2 (13:00→21:19)
[2018-05-23] MEDS ORDERED: DEXTROSE 50% 25 GM/50 ML VIAL IV PRN (15:19)
[2018-05-23] MEDS ORDERED: GLUCAGON 1 MG VIAL IM PRN (15:19)
[2018-05-23] MEDS: SKIN HEALING OINT (AQUAPHOR) 50 GM TUBE TOP SCH ×2 (15:32→21:18)
[2018-05-23] MEDS: traMADol 50 MG TABLET PO PRN (21:16)
[2018-05-24] MEDS: ALBUTEROL/IPRATROPIUM 3 ML NEB RESP TX SCH ×7 (00:03→23:15)
[2018-05-24] MEDS: ACETAMINOPHEN 325 MG/10.15 ML UDCUP PER TUBE PRN (00:56)
[2018-05-24] MEDS: AMPICILLIN/SULBACTAM 1,500 MG in SODIUM CHLORIDE 0.9% 100 ML IV SCH ×4 (00:57→22:34)
[2018-05-24] MEDS: METOPROLOL TARTRATE 25 MG TABLET PER TUBE SCH ×3 (03:44→22:38)
[2018-05-24] MEDS: VANCOMYCIN 50 MG/ML 60 ML/BOTTLE PER TUBE SCH ×4 (03:45→21:00)
[2018-05-24] MEDS: methylPREDNISolone SOD SUC 40 MG/1 ML VIAL IV SCH ×3 (04:00→22:00)
[2018-05-24 04:17] LABS: Hematocrit 34.3 VOL% (42.0-52.0); Hemoglobin 10.8 GM/DL (14.0-18.0); Immature Granulocytes % 0.4 %; Immature Granulocytes Absolute 0.03 #; Lymphocytes # 2.3 10*3/uL (1.4-4.0); Mean Corpuscular HGB Conc 31.5 GM/DL (32-36); Mean Corpuscular Hemoglobin 29 PG (27-34); Mean Corpuscular Volume 93.2 FL (87-102); Mean Platelet Volume 11.6 FL (9.6-12.0); Monocytes # 0.4 10*3/uL (0.11-0.8); Monocytes % 4.9 % (1.7-12.7); Neutrophils # 5.8 10*3/uL (1.4-7.4); Neutrophils % 67.7 % (38.7-73.9); Platelet Count 240 T/CUMM (130-400); Red Blood Count 3.68 MC/CUMM (3.8-5.5); Red Cell Distribution Width 13.6 % (9.3-17.3); White Blood Count 8.5 T/CUMM (4-12)
[2018-05-24] MEDS: LIDOCAINE 5% PATCH TRANSDERM SCH ×3 (06:43→22:37)
[2018-05-24] MEDS: DORNASE ALFA 2.5 MG/2.5 ML VIAL RESP TX SCH ×2 (07:45→19:59)
[2018-05-24] MEDS: PREGABALIN 25 MG CAPSULE PER TUBE SCH ×3 (09:53→22:00)
[2018-05-24] MEDS: DOCUSATE SODIUM 100 MG/10 ML UDCUP PER TUBE SCH (09:53)
[2018-05-24] MEDS: FERROUS SULFATE 300 MG/5 ML UDCUP PO SCH ×3 (09:53→22:00)
[2018-05-24] MEDS: APIXABAN 5 MG TABLET PER TUBE SCH ×2 (09:54→22:00)
[2018-05-24] MEDS: ESCITALOPRAM 10 MG TABLET PER TUBE SCH (09:56)
[2018-05-24] MEDS: ZINC OXIDE PASTE 113 GM TUBE TOP SCH ×2 (12:12→22:35)
[2018-05-24] MEDS: SKIN HEALING OINT (AQUAPHOR) 50 GM TUBE TOP SCH ×2 (12:12→22:35)
[2018-05-25] MEDS: AMPICILLIN/SULBACTAM 1,500 MG in SODIUM CHLORIDE 0.9% 100 ML IV SCH (01:30)
[2018-05-25] MEDS: ALBUTEROL/IPRATROPIUM 3 ML NEB RESP TX SCH ×6 (02:59→23:40)
[2018-05-25] MEDS: VANCOMYCIN 50 MG/ML 60 ML/BOTTLE PER TUBE SCH ×4 (03:00→21:12)
[2018-05-25] MEDS: methylPREDNISolone SOD SUC 40 MG/1 ML VIAL IV SCH ×3 (04:53→21:06)
[2018-05-25 06:08] LABS: Calcium 9.4 MG/DL (8.5-10.1); Osmolality,Calculated 292.6 MOS/KG (273-304); Potassium 3.4 MMOL/L (3.5-5.1); Prealbumin 25.8 MG/DL (20-40)
[2018-05-25 07:40] LABS: Basophils % 0.1 % (0.0-0.8); Hemoglobin 11.8 GM/DL (14.0-18.0); Immature Granulocytes % 0.4 %; Immature Granulocytes Absolute 0.04 #; Lymphocytes # 2.3 10*3/uL (1.4-4.0); Lymphocytes % 24.5 % (21.2-54.2); Mean Corpuscular HGB Conc 32.8 GM/DL (32-36); Mean Corpuscular Hemoglobin 30 PG (27-34); Mean Platelet Volume 10.8 FL (9.6-12.0); Monocytes # 0.4 10*3/uL (0.11-0.8); Monocytes % 4.2 % (1.7-12.7); Neutrophils # 6.6 10*3/uL (1.4-7.4); Neutrophils % 70.8 % (38.7-73.9); Platelet Count 260 T/CUMM (130-400); Red Cell Distribution Width 13.4 % (9.3-17.3); White Blood Count 9.3 T/CUMM (4-12)
[2018-05-25] MEDS: LIDOCAINE 5% PATCH TRANSDERM SCH ×2 (07:44→19:43)
[2018-05-25] MEDS: PIPERACILLIN/TAZOBACTAM 3,375 MG in SODIUM CHLORIDE 0.9% 100 ML IV SCH ×3 (07:46→23:31)
[2018-05-25] MEDS: DORNASE ALFA 2.5 MG/2.5 ML VIAL RESP TX SCH ×2 (07:47→19:26)
[2018-05-25] MEDS: FERROUS SULFATE 300 MG/5 ML UDCUP PO SCH ×3 (09:15→21:09)
[2018-05-25] MEDS: DOCUSATE SODIUM 100 MG/10 ML UDCUP PER TUBE SCH (09:15)
[2018-05-25] MEDS: ESCITALOPRAM 10 MG TABLET PER TUBE SCH (09:16)
[2018-05-25] MEDS: APIXABAN 5 MG TABLET PER TUBE SCH ×2 (09:16→21:08)
[2018-05-25] MEDS: ZINC OXIDE PASTE 113 GM TUBE TOP SCH ×2 (09:17→21:16)
[2018-05-25] MEDS: SKIN HEALING OINT (AQUAPHOR) 50 GM TUBE TOP SCH ×2 (09:17→21:16)
[2018-05-25] MEDS: METOPROLOL TARTRATE 25 MG TABLET PER TUBE SCH ×2 (09:18→21:09)
[2018-05-25] MEDS: PREGABALIN 25 MG CAPSULE PER TUBE SCH ×3 (09:31→21:07)
[2018-05-25] MEDS: traMADol 50 MG TABLET PO PRN (21:07)
[2018-05-26] MEDS: VANCOMYCIN 50 MG/ML 60 ML/BOTTLE PER TUBE SCH ×4 (03:26→20:46)
[2018-05-26] MEDS: ALBUTEROL/IPRATROPIUM 3 ML NEB RESP TX SCH ×6 (03:32→23:41)
[2018-05-26 06:39] LABS: Hematocrit 37.2 VOL% (42.0-52.0); Hemoglobin 11.7 GM/DL (14.0-18.0); Immature Granulocytes % 0.5 %; Immature Granulocytes Absolute 0.05 #; Lymphocytes # 3.7 10*3/uL (1.4-4.0); Lymphocytes % 37.1 % (21.2-54.2); Mean Corpuscular HGB Conc 31.5 GM/DL (32-36); Mean Corpuscular Hemoglobin 29 PG (27-34); Mean Corpuscular Volume 92.3 FL (87-102); Mean Platelet Volume 11.2 FL (9.6-12.0); Monocytes # 0.7 10*3/uL (0.11-0.8); Monocytes % 7.1 % (1.7-12.7); Neutrophils # 5.5 10*3/uL (1.4-7.4); Neutrophils % 55.3 % (38.7-73.9); Platelet Count 264 T/CUMM (130-400); Red Blood Count 4.03 MC/CUMM (3.8-5.5); Red Cell Distribution Width 13.3 % (9.3-17.3)
[2018-05-26 06:48] LABS: Calcium 9.5 MG/DL (8.5-10.1); Osmolality,Calculated 294.6 MOS/KG (273-304); Potassium 3.1 MMOL/L (3.5-5.1)
[2018-05-26] MEDS ORDERED: POTASSIUM CHLORIDE RIDER 10 MEQ in PREMIX 1 EACH IV PRN (07:17)
[2018-05-26] MEDS: FERROUS SULFATE 300 MG/5 ML UDCUP PO SCH ×3 (09:34→20:46)
[2018-05-26] MEDS: DOCUSATE SODIUM 100 MG/10 ML UDCUP PER TUBE SCH (09:34)
[2018-05-26] MEDS: PIPERACILLIN/TAZOBACTAM 3,375 MG in SODIUM CHLORIDE 0.9% 100 ML IV SCH ×2 (09:34→14:40)
[2018-05-26] MEDS: PREGABALIN 25 MG CAPSULE PER TUBE SCH ×3 (09:35→20:47)
[2018-05-26] MEDS: METOPROLOL TARTRATE 25 MG TABLET PER TUBE SCH ×2 (09:35→20:47)
[2018-05-26] MEDS: ESCITALOPRAM 10 MG TABLET PER TUBE SCH (09:35)
[2018-05-26] MEDS: APIXABAN 5 MG TABLET PER TUBE SCH ×2 (09:35→20:47)
[2018-05-26] MEDS: LIDOCAINE 5% PATCH TRANSDERM SCH ×2 (09:36→18:00)
[2018-05-26] MEDS: ZINC OXIDE PASTE 113 GM TUBE TOP SCH ×2 (09:36→20:47)
[2018-05-26] MEDS: SKIN HEALING OINT (AQUAPHOR) 50 GM TUBE TOP SCH ×2 (09:36→20:47)
[2018-05-26] MEDS: traMADol 50 MG TABLET PO PRN (15:39)
[2018-05-26] MEDS: POTASSIUM CHLORIDE 20 MEQ TABLET PO PRN (18:00)
[2018-05-26] MEDS: ACETAMINOPHEN 325 MG/10.15 ML UDCUP PER TUBE PRN (20:51)
[2018-05-27] MEDS: PIPERACILLIN/TAZOBACTAM 3,375 MG in SODIUM CHLORIDE 0.9% 100 ML IV SCH ×3 (01:28→16:18)
[2018-05-27] MEDS: POTASSIUM CHLORIDE 20 MEQ TABLET PO PRN ×4 (01:28→14:44)
[2018-05-27] MEDS: ALBUTEROL/IPRATROPIUM 3 ML NEB RESP TX SCH ×6 (02:00→23:26)
[2018-05-27] MEDS: VANCOMYCIN 50 MG/ML 60 ML/BOTTLE PER TUBE SCH ×4 (03:51→22:06)
[2018-05-27 06:31] LABS: Eosinophils # 0.2 10*3/uL (0.0-0.87); Eosinophils % 1.8 % (0.00-10.9); Hematocrit 38.1 VOL% (42.0-52.0); Hemoglobin 11.9 GM/DL (14.0-18.0); Immature Granulocytes % 0.4 %; Immature Granulocytes Absolute 0.04 #; Lymphocytes # 5.3 10*3/uL (1.4-4.0); Lymphocytes % 55.8 % (21.2-54.2); Mean Corpuscular HGB Conc 31.2 GM/DL (32-36); Mean Corpuscular Hemoglobin 29 PG (27-34); Mean Corpuscular Volume 92.9 FL (87-102); Mean Platelet Volume 10.9 FL (9.6-12.0); Monocytes # 0.6 10*3/uL (0.11-0.8); Monocytes % 6.8 % (1.7-12.7); Neutrophils # 3.3 10*3/uL (1.4-7.4); Neutrophils % 35.2 % (38.7-73.9); Platelet Count 290 T/CUMM (130-400); Red Cell Distribution Width 13.5 % (9.3-17.3); White Blood Count 9.4 T/CUMM (4-12)
[2018-05-27] MEDS: LIDOCAINE 5% PATCH TRANSDERM SCH ×2 (06:40→23:16)
[2018-05-27 06:55] LABS: Calcium 9.1 MG/DL (8.5-10.1); Osmolality,Calculated 286.1 MOS/KG (273-304)
[2018-05-27] MEDS: METOPROLOL TARTRATE 25 MG TABLET PER TUBE SCH ×2 (08:12→22:05)
[2018-05-27] MEDS: PREGABALIN 25 MG CAPSULE PER TUBE SCH ×3 (08:12→22:05)
[2018-05-27] MEDS: FERROUS SULFATE 300 MG/5 ML UDCUP PO SCH ×3 (08:12→22:05)
[2018-05-27] MEDS: ESCITALOPRAM 10 MG TABLET PER TUBE SCH (08:12)
[2018-05-27] MEDS: DOCUSATE SODIUM 100 MG/10 ML UDCUP PER TUBE SCH (08:12)
[2018-05-27] MEDS: APIXABAN 5 MG TABLET PER TUBE SCH ×2 (08:13→22:05)
[2018-05-27] MEDS: ZINC OXIDE PASTE 113 GM TUBE TOP SCH ×2 (08:13→22:10)
[2018-05-27] MEDS: SKIN HEALING OINT (AQUAPHOR) 50 GM TUBE TOP SCH ×2 (08:13→22:06)
[2018-05-27 12:39] LABS: Eosinophils 2 % (0-10); Lymphocytes 57 % (20-55); Platelet Estimate Normal; Polychromasia Slight; Segmented Neutrophils 36 % (50-85); Total Cells Counted 100
[2018-05-27] MEDS: ACETAMINOPHEN 325 MG/10.15 ML UDCUP PER TUBE PRN (22:15)
[2018-05-28] MEDS: PIPERACILLIN/TAZOBACTAM 3,375 MG in SODIUM CHLORIDE 0.9% 100 ML IV SCH ×3 (01:02→18:08)
[2018-05-28] MEDS: ALBUTEROL/IPRATROPIUM 3 ML NEB RESP TX SCH ×6 (03:35→23:36)
[2018-05-28] MEDS: VANCOMYCIN 50 MG/ML 60 ML/BOTTLE PER TUBE SCH ×3 (03:51→17:32)
[2018-05-28 06:28] LABS: Basophils % 0.1 % (0.0-0.8); Eosinophils # 0.4 10*3/uL (0.0-0.87); Eosinophils % 4.6 % (0.00-10.9); Hematocrit 37.5 VOL% (42.0-52.0); Immature Granulocytes % 0.6 %; Immature Granulocytes Absolute 0.05 #; Lymphocytes # 4.1 10*3/uL (1.4-4.0); Lymphocytes % 50.5 % (21.2-54.2); Mean Corpuscular Hemoglobin 29 PG (27-34); Mean Corpuscular Volume 91.5 FL (87-102); Mean Platelet Volume 10.5 FL (9.6-12.0); Monocytes # 0.5 10*3/uL (0.11-0.8); Monocytes % 6.4 % (1.7-12.7); Neutrophils # 3.1 10*3/uL (1.4-7.4); Neutrophils % 37.8 % (38.7-73.9); Platelet Count 274 T/CUMM (130-400); Red Cell Distribution Width 13.5 % (9.3-17.3); White Blood Count 8.1 T/CUMM (4-12)
[2018-05-28 06:55] LABS: Calcium 8.6 MG/DL (8.5-10.1)
[2018-05-28 06:56] LABS: Osmolality,Calculated 281.3 MOS/KG (273-304); Potassium 3.3 MMOL/L (3.5-5.1)
[2018-05-28 06:58] LABS: Eosinophils 5 % (0-10); Hypochromasia 1+; Lymphocytes 43 % (20-55); Platelet Estimate Adequate; Segmented Neutrophils 45 % (50-85); Total Cells Counted 100
[2018-05-28 06:59] LABS: Atypical Lymphocytes Few
[2018-05-28] MEDS: LIDOCAINE 5% PATCH TRANSDERM SCH ×2 (07:49→21:29)
[2018-05-28] MEDS: METOPROLOL TARTRATE 25 MG TABLET PER TUBE SCH ×2 (10:28→21:45)
[2018-05-28] MEDS: PREGABALIN 25 MG CAPSULE PER TUBE SCH ×3 (10:31→21:30)
[2018-05-28] MEDS: FERROUS SULFATE 300 MG/5 ML UDCUP PO SCH ×3 (10:33→21:45)
[2018-05-28] MEDS: SKIN HEALING OINT (AQUAPHOR) 50 GM TUBE TOP SCH ×2 (10:33→22:07)
[2018-05-28] MEDS: ESCITALOPRAM 10 MG TABLET PER TUBE SCH (10:33)
[2018-05-28] MEDS: DOCUSATE SODIUM 100 MG/10 ML UDCUP PER TUBE SCH (10:33)
[2018-05-28] MEDS: POTASSIUM CHLORIDE 20 MEQ TABLET PO SCH (10:34)
[2018-05-28] MEDS: ZINC OXIDE PASTE 113 GM TUBE TOP SCH ×2 (10:34→22:07)
[2018-05-28] MEDS: APIXABAN 5 MG TABLET PER TUBE SCH ×2 (10:34→21:30)
[2018-05-28] MEDS ORDERED: PIPERACILLIN/TAZOBACTAM 4,500 MG in SODIUM CHLORIDE 0.9% 100 ML IV SCH (14:00)
[2018-05-28] MEDS: LACTOBACILLUS ACIDOPHILUS/BULGARICUS CAPLET PEG SCH (21:30)
[2018-05-29] MEDS: PIPERACILLIN/TAZOBACTAM 3,375 MG in SODIUM CHLORIDE 0.9% 100 ML IV SCH ×3 (01:49→17:10)
[2018-05-29] MEDS: ALBUTEROL/IPRATROPIUM 3 ML NEB RESP TX SCH ×6 (03:31→22:55)
[2018-05-29 05:32] LABS: Basophils % 0.4 % (0.0-0.8); Eosinophils # 0.3 10*3/uL (0.0-0.87); Eosinophils % 4.8 % (0.00-10.9); Hematocrit 38.3 VOL% (42.0-52.0); Hemoglobin 12.2 GM/DL (14.0-18.0); Immature Granulocytes % 0.4 %; Immature Granulocytes Absolute 0.02 #; Lymphocytes # 2.3 10*3/uL (1.4-4.0); Lymphocytes % 45.1 % (21.2-54.2); Mean Corpuscular HGB Conc 31.9 GM/DL (32-36); Mean Corpuscular Hemoglobin 29 PG (27-34); Mean Corpuscular Volume 89.7 FL (87-102); Mean Platelet Volume 10.7 FL (9.6-12.0); Monocytes # 0.4 10*3/uL (0.11-0.8); Monocytes % 7.2 % (1.7-12.7); Neutrophils # 2.2 10*3/uL (1.4-7.4); Neutrophils % 42.1 % (38.7-73.9); Platelet Count 289 T/CUMM (130-400); Red Blood Count 4.27 MC/CUMM (3.8-5.5); Red Cell Distribution Width 13.8 % (9.3-17.3); White Blood Count 5.2 T/CUMM (4-12)
[2018-05-29 05:58] LABS: Calcium 8.9 MG/DL (8.5-10.1); Osmolality,Calculated 279.4 MOS/KG (273-304); Potassium 3.5 MMOL/L (3.5-5.1)
[2018-05-29] MEDS: LIDOCAINE 5% PATCH TRANSDERM SCH ×2 (06:58→21:15)
[2018-05-29] MEDS: POTASSIUM CHLORIDE 20 MEQ TABLET PO SCH (10:17)
[2018-05-29] MEDS: APIXABAN 5 MG TABLET PER TUBE SCH ×2 (10:18→21:15)
[2018-05-29] MEDS: PREGABALIN 25 MG CAPSULE PER TUBE SCH ×3 (10:18→21:14)
[2018-05-29] MEDS: ESCITALOPRAM 10 MG TABLET PER TUBE SCH (10:19)
[2018-05-29] MEDS: FERROUS SULFATE 300 MG/5 ML UDCUP PO SCH ×3 (10:19→21:15)
[2018-05-29] MEDS: LACTOBACILLUS ACIDOPHILUS/BULGARICUS CAPLET PEG SCH ×2 (10:19→21:14)
[2018-05-29] MEDS: DOCUSATE SODIUM 100 MG/10 ML UDCUP PER TUBE SCH (10:19)
[2018-05-29] MEDS: SKIN HEALING OINT (AQUAPHOR) 50 GM TUBE TOP SCH ×2 (10:20→21:16)
[2018-05-29] MEDS: ZINC OXIDE PASTE 113 GM TUBE TOP SCH ×2 (10:20→21:17)
[2018-05-29] MEDS: METOPROLOL TARTRATE 25 MG TABLET PER TUBE SCH ×2 (10:20→21:15)
[2018-05-30] MEDS: PIPERACILLIN/TAZOBACTAM 3,375 MG in SODIUM CHLORIDE 0.9% 100 ML IV SCH ×3 (01:51→17:13)
[2018-05-30] MEDS: ALBUTEROL/IPRATROPIUM 3 ML NEB RESP TX SCH ×6 (02:33→22:56)
[2018-05-30] MEDS: DOCUSATE SODIUM 100 MG/10 ML UDCUP PER TUBE SCH (09:27)
[2018-05-30] MEDS: FERROUS SULFATE 300 MG/5 ML UDCUP PO SCH ×3 (09:27→22:26)
[2018-05-30] MEDS: SKIN HEALING OINT (AQUAPHOR) 50 GM TUBE TOP SCH ×2 (09:28→22:28)
[2018-05-30] MEDS: ESCITALOPRAM 10 MG TABLET PER TUBE SCH (09:28)
[2018-05-30] MEDS: ZINC OXIDE PASTE 113 GM TUBE TOP SCH ×2 (09:28→22:28)
[2018-05-30] MEDS: POTASSIUM CHLORIDE 20 MEQ TABLET PO SCH (09:28)
[2018-05-30] MEDS: APIXABAN 5 MG TABLET PER TUBE SCH ×2 (09:28→22:26)
[2018-05-30] MEDS: METOPROLOL TARTRATE 25 MG TABLET PER TUBE SCH ×2 (09:28→22:27)
[2018-05-30] MEDS: PREGABALIN 25 MG CAPSULE PER TUBE SCH ×3 (09:28→22:26)
[2018-05-30] MEDS: LACTOBACILLUS ACIDOPHILUS/BULGARICUS CAPLET PEG SCH ×2 (09:28→22:26)
[2018-05-30] MEDS: LIDOCAINE 5% PATCH TRANSDERM SCH ×2 (11:08→22:27)
[2018-05-30] MEDS: QUEtiapine 25 MG TABLET PER TUBE PRN (22:26)
[2018-05-31] MEDS: ALBUTEROL/IPRATROPIUM 3 ML NEB RESP TX SCH ×6 (02:53→23:44)
[2018-05-31] MEDS: PIPERACILLIN/TAZOBACTAM 3,375 MG in SODIUM CHLORIDE 0.9% 100 ML IV SCH ×3 (03:19→17:12)
[2018-05-31 05:50] LABS: Calcium 9.2 MG/DL (8.5-10.1); Osmolality,Calculated 277.4 MOS/KG (273-304); Potassium 3.7 MMOL/L (3.5-5.1); Prealbumin 30.9 MG/DL (20-40)
[2018-05-31] MEDS: LIDOCAINE 5% PATCH TRANSDERM SCH ×2 (06:27→20:29)
[2018-05-31] MEDS: LACTOBACILLUS ACIDOPHILUS/BULGARICUS CAPLET PEG SCH ×2 (09:59→20:28)
[2018-05-31] MEDS: FERROUS SULFATE 300 MG/5 ML UDCUP PO SCH ×3 (09:59→20:28)
[2018-05-31] MEDS: APIXABAN 5 MG TABLET PER TUBE SCH ×2 (09:59→20:28)
[2018-05-31] MEDS: SKIN HEALING OINT (AQUAPHOR) 50 GM TUBE TOP SCH ×2 (09:59→20:28)
[2018-05-31] MEDS: ESCITALOPRAM 10 MG TABLET PER TUBE SCH (09:59)
[2018-05-31] MEDS: DOCUSATE SODIUM 100 MG/10 ML UDCUP PER TUBE SCH (09:59)
[2018-05-31] MEDS: PREGABALIN 25 MG CAPSULE PER TUBE SCH ×3 (09:59→20:28)
[2018-05-31] MEDS: POTASSIUM CHLORIDE 20 MEQ TABLET PO SCH (10:00)
[2018-05-31] MEDS: ZINC OXIDE PASTE 113 GM TUBE TOP SCH ×2 (10:00→20:29)
[2018-05-31] MEDS: METOPROLOL TARTRATE 25 MG TABLET PER TUBE SCH ×2 (10:00→20:29)
[2018-05-31] MEDS: VANCOMYCIN 50 MG/ML 60 ML/BOTTLE PER TUBE SCH ×3 (12:10→20:33)
[2018-06-01] MEDS: PIPERACILLIN/TAZOBACTAM 3,375 MG in SODIUM CHLORIDE 0.9% 100 ML IV SCH (01:35)
[2018-06-01] MEDS: VANCOMYCIN 50 MG/ML 60 ML/BOTTLE PER TUBE SCH ×2 (01:35→09:19)
[2018-06-01] MEDS: ALBUTEROL/IPRATROPIUM 3 ML NEB RESP TX SCH ×3 (03:25→11:07)
[2018-06-01] MEDS ORDERED: fentaNYL 12 MCG/HR PATCH TRANSDERM SCH (09:00)
[2018-06-01] MEDS: APIXABAN 5 MG TABLET PER TUBE SCH (09:17)
[2018-06-01] MEDS: PREGABALIN 25 MG CAPSULE PER TUBE SCH (09:18)
[2018-06-01] MEDS: DOCUSATE SODIUM 100 MG/10 ML UDCUP PER TUBE SCH (09:18)
[2018-06-01] MEDS: LACTOBACILLUS ACIDOPHILUS/BULGARICUS CAPLET PEG SCH (09:18)
[2018-06-01] MEDS: FERROUS SULFATE 300 MG/5 ML UDCUP PO SCH (09:18)
[2018-06-01] MEDS: POTASSIUM CHLORIDE 20 MEQ TABLET PO SCH (09:18)
[2018-06-01] MEDS: ESCITALOPRAM 10 MG TABLET PER TUBE SCH (09:18)
[2018-06-01] MEDS: SKIN HEALING OINT (AQUAPHOR) 50 GM TUBE TOP SCH (09:19)
[2018-06-01] MEDS: METOPROLOL TARTRATE 25 MG TABLET PER TUBE SCH (09:19)
[2018-06-01] MEDS: ZINC OXIDE PASTE 113 GM TUBE TOP SCH (09:19)
[2018-06-01] MEDS: LIDOCAINE 5% PATCH TRANSDERM SCH (09:19)
[2018-06-01 13:51] VITALS: BP 91/62
== END 2018-06-01 12:02 | DRG 49 ==
LOC: N.5E 22:41 → SUATTDRO 23:51 → N.CC 05-21 18:19 → N.5E 05-25 18:01
PROVIDERS: ADMIT Internal Medicine